=== PATIENT | female | born 1980 | race Caucasian/White ===

== ENCOUNTER 2016-11-17 06:47 | Observation (INO) | payer BC ==
[~2016-11-17] VITALS: Ht 170.2 cm; Wt 60.0 kg
[2016-11-17] VITALS (12 sets, daily range): BP systolic 115–138; BP diastolic 57–86; PULSE 79–100; TEMP 36.6–37.1; O2SAT 94–100; Ht 170.2 cm; Wt 60.0 kg
[~2016-11-17 06:47] MED LIST: BACL10TA PO; BUPRTAB51 PO; CLN200 PO; CLON1TAB3 PO; GDN/80 PO; LACTATED RINGER'S 1000ML 1,000 ML IV SCH; PANT40TA PO; TRMO2580 TOP
[2016-11-17] MEDS ORDERED: LACTATED RINGER'S 1000ML 1,000 ML IV ONE (07:27)
--- NOTE | 2016-11-17 07:27 | Endo History and Physical ---
History & Physical Date of Service: Nov 17, 2016. Chief Complaint: Abdominal pain Referring Physician: Dr. Atkinson History of Present Illness Patient with recurrent abdominal pain found to have CBD stones on a recent EUS. Patient presents for OP ERCP today. Past Surgical History Hx Cardiac Surgery: No Hx Abdominal Surgery: Yes ( X3, LAP AYDEN) Hx Post-Op Nausea and Vomiting: No Hx Cancer Surgery: No Hx Thoracic Surgery: No Hx Orthopedic: No Hx Urinary Tract Surgery: No Social History Smoking Status: Current Some Day Smoker Hx Substance Use: No Hx Alcohol Use: No Allergies Coded Allergies: No Known Allergies (Unverified , 11/11/16) Current Medications Reported Home Medications Medications Dose Route/Sig Max Daily Dose Days Date Category Sulindac 200 Mg Tab 1 Tab PO UD PRN 11/11/16 Reported Triamcinolone Acet 0.025% (Triamcinolone Acetonide (Topic) 0.025 % Oin 1 Appln TOP BID PRN 11/11/16 Reported Protonix (Pantoprazole) 40 Mg Tab 40 Mg PO QAM 11/11/16 Reported Lioresal (Baclofen) 10 Mg Tab 10 Mg PO PRN 08/11/16 Reported Geodon (Ziprasidone Hcl) 80 Mg Cap 80 Mg PO HS 08/11/16 Reported Klonopin (Clonazepam) 1 Mg Tab 1 Mg PO QAM 08/11/16 Reported Wellbutrin-Xl (Bupropion HCl) 300 Mg Tabcr 150 Mg PO QAM 08/11/16 Reported Vital Signs Weight (Kilograms): 60 Height (Feet): 5 Height (Inches): 7 Physical Exam General Appearance: no apparent distress Respiratory/Chest: Auscultation: breath sounds normal Cardiovascular: Heart Auscultation: RRR Abdomen: Inspection & Palpation: soft Assessment and Plan Patient with Gallstones seen on recent EUS associated with recurrent abdominal pain and nausea Will plan for ERCP today. Risks discussed to include bleeding , infection, perforation, pain, pancreatitis, and failed cannulation. Plan ERCP
[2016-11-17] MEDS ORDERED: INDOMETHACIN 50 MG SUPP PR SCH (07:30)
[2016-11-17] MEDS ORDERED: GLYCOPYRROLATE INJ 0.2 MG/ML VIAL ONE (07:31)
[2016-11-17] MEDS ORDERED: FENTANYL CITRATE INJ 50 MCG/1 ML 2 ML VIAL ONE (07:31)
[2016-11-17] MEDS ORDERED: NEOSTIGMINE METHYLSULFATE 5 MG/5 ML SYR ONE (07:31)
[2016-11-17] MEDS ORDERED: MIDAZOLAM HCL 1 MG/ML 2ML VIAL ONE (07:31)
[2016-11-17] MEDS ORDERED: ROCURONIUM BROMIDE 10 MG/ML 5 ML VIAL ONE (07:31)
[2016-11-17] MEDS ORDERED: DEXAMETHASONE SOD INJ 4 MG/ML VIAL ONE (07:31)
[2016-11-17] MEDS ORDERED: ONDANSETRON INJ 2 MG/ML 2 ML VIAL ONE (07:31)
[2016-11-17] MEDS ORDERED: PROPOFOL IV EMULSION 10 MG/ML 20 ML VIAL IV ONE (07:31)
[2016-11-17] MEDS ORDERED: LIDOCAINE HCL 2% 2 ML VIAL (20MG/ML) ONE (07:31)
[2016-11-17] MEDS ORDERED: ONDANSETRON INJ 2 MG/ML 2 ML VIAL IV PRN ×4 (10:30→14:00)
[2016-11-17] MEDS ORDERED: EpHEDrine SULFATE INJ 50 MG/ML AMP IV PRN (10:30)
[2016-11-17] MEDS ORDERED: LABETALOL HCL IV 5 MG/ML 20ML IV PRN (10:30)
[2016-11-17] MEDS ORDERED: MEPERIDINE HCL 25 MG/ML CARP IV PRN (10:30)
[2016-11-17] MEDS ORDERED: HYDROmorphone INJ 1 MG/ML SYR IV PRN (10:30)
[2016-11-17] MEDS ORDERED: ATROPINE SULFATE 0.1 MG/ML 5ML SYR IV PRN (10:30)
--- NOTE | 2016-11-17 10:38 | Discharge Instructions ---
Endoscopy Patient Instructions Date / Procedure(s) Performed Nov 17, 2016. ERCP Allergy Information Coded Allergies: No Known Allergies (Verified , 11/17/16) Discharge Date / Findings Nov 17, 2016. Common bile duct sludge papillary stenosis Medication Instructions Reported Home Medications Medications Dose Route/Sig Max Daily Dose Days Date Category Sulindac 200 Mg Tab 1 Tab PO UD PRN 11/11/16 Reported Triamcinolone Acet 0.025% (Triamcinolone Acetonide (Topic) 0.025 % Oin 1 Appln TOP BID PRN 11/11/16 Reported Protonix (Pantoprazole) 40 Mg Tab 40 Mg PO QAM 11/11/16 Reported Lioresal (Baclofen) 10 Mg Tab 10 Mg PO PRN 08/11/16 Reported Geodon (Ziprasidone Hcl) 80 Mg Cap 80 Mg PO HS 08/11/16 Reported Klonopin (Clonazepam) 1 Mg Tab 1 Mg PO QAM 08/11/16 Reported Wellbutrin-Xl (Bupropion HCl) 300 Mg Tabcr 150 Mg PO QAM 08/11/16 Reported Provider Instructions Activity Restrictions - No exercising or heavy lifting for 24 hours. - Do not drink alcohol the day of the procedure. - Do not drive a car or operate machinery until the day after the procedure. - Do not make any important decisions or sign important papers in 24 hours after the procedure. Following Day: - Return to full activity which may include returning to work/school. Diet Clear liquid diet today Regular diet on 11/18/16 Treatment For Common After Affects For mild abdominal pain, bloating, or excessive gas: - Rest - Eat lightly - Lie on right side Follow-Up Information Follow-up with Dr. Duarte in 4 to 6 months if symptoms persist Clear liquid diet today Regular diet on 11/18/16 Abdominal xray in 4 weeks (ensure passage of the pancreatic stent) Anesthesia Information What You Should Know You have had a procedure that required some medicine to reduce anxiety and discomfort. This treatment is called moderate sedation. After receiving the treatment, you may be sleepy, but you will be able to breathe on your own. The effects of the treatment may last for several hours. Follow these instructions along with Activity/Diet recommendations noted above: * Do NOT do anything where dizziness or clumsiness would be dangerous. * Rest quietly at home today, then you can be up and about tomorrow. * Have a responsible person stay with you the rest of today. * You may have had an I.V. today. If so, you may take the dressing off later today. Recommendations Call your doctor if: * Trouble breathing * Continuous vomiting for more than 24 hours * Temperature above 101 degrees * Severe abdominal pain or bloating * Pain not relieved by pain medicine ordered * There is increased drainage or redness from any incision * A large amount of rectal bleeding greater than 2-3 tablespoons. (If you had a polyp/s removed or have hemorrhoids, a small amount of blood - from the rectum is to be expected.) * You have any unanswered questions or concerns. IN THE EVENT OF A SERIOUS EMERGENCY, GO TO THE NEAREST EMERGENCY ROOM Your discharge instructions were prepared by provider Skinny Duarte. Patient Instructions Signature Page Moon Tovar Patient (or Guardian) Signature/Date: I have read and understand the instructions given to me by my caregivers. Caregiver/RN/Doctor Signature/Date: The above-named patient and/or guardian has received patient instructions on this date. + Original Patient Signature Page (only) stays with chart. Please make copy for patient.
--- NOTE | 2016-11-17 11:17 | GI REPORT ---
Procedure Date: 11/17/2016 10:01 AM Procedure: ERCP Indications: Abdominal pain of suspected biliary origin, Abnormal endoscopic ultrasound of the biliary system, For therapy of bile duct stone(s) Medicines: General Anesthesia, Indocin 100 mg IN Complications: No immediate complications. Estimated blood loss: Minimal. Estimated Blood Loss: Estimated blood loss was minimal. Procedure: Pre-Anesthesia Assessment: - Prior to the procedure, a History and Physical was performed, and patient medications, allergies and sensitivities were reviewed. The patient's tolerance of previous anesthesia was reviewed. - The risks and benefits of the procedure and the sedation options and risks were discussed with the patient. All questions were answered and informed consent was obtained. - Patient identification and proposed procedure were verified prior to the procedure by the physician, the nurse and the edge stitcher. The procedure was verified in the procedure room. - Pre-procedure physical examination revealed no contraindications to sedation. - ASA Grade Assessment: II - A patient with mild systemic disease. - After reviewing the risks and benefits, the patient was deemed in satisfactory condition to undergo the procedure. - The anesthesia plan was to use general anesthesia. - Immediately prior to administration of medications, the patient was re-assessed for adequacy to receive sedatives. - The heart rate, respiratory rate, oxygen saturations, blood pressure, adequacy of pulmonary ventilation, and response to care were monitored throughout the procedure. - The physical status of the patient was re-assessed after the procedure. After obtaining informed consent, the scope was passed under direct vision. Throughout the procedure, the patient's blood pressure, pulse, and oxygen saturations were monitored continuously. The ERCP was accomplished without difficulty. The patient tolerated the procedure well. The scope was introduced through the mouth, and advanced to the duodenum and used to inject contrast into the bile duct. Findings: A technician film of the abdomen was obtained. Surgical clips, consistent with previous cholecystectomy, were seen in the area of the right upper quadrant of the abdomen. The esophagus was successfully intubated under direct vision without detailed examination of the pharynx, larynx, and associated structures, and upper GI tract. The upper GI tract was grossly normal. The major papilla was congested. The ventral pancreatic duct was inadvertently cannulated with the short-nosed traction sphincterotome (Omni 35) and 0.035 in Acrobat guidewire without any complications. The wire was left in place to perform a double wire technique to aid in biliary cannulation. The bile duct was then deeply cannulated with the short-nosed traction sphincterotome (Omni 35) and 0.025 in Acrobat guidewire with 1 attempt. Contrast was injected. I personally interpreted the bile duct images. Contrast extended to the entire biliary tree. A cholecystectomy had been performed. The main bile duct was diffusely dilated. The largest diameter was 10 mm. The biliary orifice was stenotic. This appeared benign. Biliary sphincterotomy was made with a monofilament short-tip traction sphincterotome using ERBE electrocautery. There was no post-sphincterotomy bleeding. To discover objects, the biliary tree was swept with a 8.5 mm to15 mm balloon starting at the bifurcation several times. Sludge was swept from the duct. No debris or stones remained on occlusion cholangiogram. The biliary tree appeared to draining well at the end of the procedure. One 5 Fr by 7 cm pancreatic stent with a 3/4 external pigtail and no internal flaps was placed 7 cm into the common bile duct. Clear fluid flowed through the stent. The stent was in good position. The endoscope was withdrawn from the patient. The total fluoroscopy exposure time was 1 minute and 29 seconds. Impression: - The major papilla appeared congested. - The patient has had a cholecystectomy. - The entire main bile duct was dilated. - Biliary papillary stenosis, benign. - A sphincterotomy was performed. - The biliary tree was swept and sludge was found. - One pancreatic stent was placed into the pancreatic duct. Recommendation: - Avoid aspirin and nonsteroidal anti-inflammatory medicines for 1 week. - Clear liquid diet today. - Observe patient's clinical course following today's ERCP with therapeutic intervention. - Perform a flat plate abdominal x-ray in 4 weeks. - Return to my office in 6 months. Skinny Duarte D.O. Skinny Duarte, 11/17/2016 11:16:17 AM This report has been signed electronically. Note Initiated On: 11/17/2016 10:01 AM I attest to the content of the Intraoperative Record and orders documented therein, exceptions below
--- NOTE | 2016-11-17 11:19 | [facility] Post Operative Brief Note ---
Immediate Operative Summary Operative Date Nov 17, 2016. Pre-Operative Diagnosis Abdominal pain, common bile duct stones Post-Operative Diagnosis Abdominal pain, bile duct sludge, papillary stenosis Procedure(s) Performed Endoscopic Retrograde Cholangiopancreatogram with pancreatic duct stent placement Surgeon Dr. 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
[2016-11-17] MEDS: FENTANYL CITRATE INJ 50 MCG/1 ML 2 ML VIAL IV PRN ×4 (11:32→12:05)
[2016-11-17] MEDS ORDERED: NURSING VERBAL MED ORDER ONE ×2 (12:15→12:45)
--- NOTE | 2016-11-17 12:22 | Anesthesiology Progress Note ---
Anesthesia Post Op Note Date & Time Nov 17, 2016 at 12:22 Vital Signs Pain Intensity: 4 Vital Signs Past 12 Hours Date Time Temp Pulse Resp B/P Pulse Ox O2 Delivery O2 Flow Rate FiO2 11/17/16 12:10 36.3 82 16 150/92 98 Room Air 11/17/16 12:00 80 16 146/91 97 Room Air 11/17/16 11:50 89 16 147/87 100 Room Air 11/17/16 11:40 85 20 146/100 99 Mask 10 11/17/16 11:30 75 16 154/89 99 Mask 10 11/17/16 11:24 36.1 95 16 136/88 99 Mask 10 11/17/16 07:26 36.9 84 18 117/57 99 Room Air Notes Mental Status: alert / awake / arousable, participated in evaluation Pt Amnestic to Procedure: Yes Nausea / Vomiting: adequately controlled Pain: adequately controlled Airway Patency, RR, SpO2: stable & adequate BP & HR: stable & adequate Hydration State: stable & adequate Anesthetic Complications: no major complications apparent
--- NOTE | 2016-11-17 12:30 | DIAGNOSTIC IMAGING REPORT ---
FLUOROSCOPIC IMAGES FROM ERCP CLINICAL HISTORY: ERCP. COMPARISON STUDY: CT of the abdomen and pelvis August 11, 2016. FLUOROSCOPY TIME: 89 seconds. FINDINGS: 9 fluoroscopic images were obtained. These images demonstrate cannulation of the common bile duct as well as the main pancreatic duct. Location of the common bile duct is noted. There are cholecystectomy clips. Subsequent images demonstrate a sweep through the common bile duct with placement of a common bile duct stent. IMPRESSION:. Fluoroscopic images from ERCP with placement of common bile duct stent. Electronically signed by: Toño Latif M.D. 11/17/2016 12:28 PM Dictated Date/Time: 11/17/2016 12:26 PM
[2016-11-17] MEDS ORDERED: METOCLOPRAMIDE HCL INJ 5 MG/ML 2 ML VIAL ONE (12:35)
[2016-11-17] MEDS ORDERED: DiphenhydrAMINE HCL 50 MG/ML VIAL ONE (12:43)
[2016-11-17] MEDS ORDERED: HYDROmorphone INJ 0.5 MG/0.5 ML SYR IV STA (12:59)
[2016-11-17] MEDS ORDERED: HYDROmorphone INJ 0.5 MG/0.5 ML SYR ONE (13:04)
--- NOTE | 2016-11-17 14:20 | Progress Note ---
Progress Note Patient with nausea, abdominal pain and discomfort after EUS/ERCP today. Please watch overnight & cover for pancreatitis. IV Dilaudid 0.5 mg as needed for pain IV Zofran 4 mg as needed for nausea LR 200 ml/hr for fluid resuscitation Please call with any questions or concerns. (Shea Romero ., RAFIQ) ATTESTATION: I have performed a history and physical examination of this patient and reviewed the electronic record. Specifically, on physical examination there is diffuse mild abdominal tenderness. Given these findings, will admit for observation for possible pancreatitis. I have discussed the case with RAFIQ Diop. The above note reflects my findings, conclusions, and recommendations. Fernando Woodruff MD (Fernando Woodruff M.D.)
--- NOTE | 2016-11-17 14:28 | History and Physical ---
History & Physical Date & Time of Service: Nov 17, 2016 at 14:06 Chief Complaint: Choledocholithiasis, Epigastric Pain Primary Care Physician: Shanice Cheek M.D. History of Present Illness Source: patient, family, clinic records, hospital records Patient seen and examined. is a 36 year old female with PMHx of bipolar disorder and chronic abdominal pain is seen for overnight observation following ERCP by Dr. Duarte today. Patient had an ERCP this morning for chronic abdominal pain, and bile duct stone issues.Following the procedure patient has had worsening nausea, and RUQ abdominal pain. She states the pain is sharp and crampy. It is worse with movement and she rates it as a 7/10. She denies fevers , chills, URI symptoms, chest pain, SOB, vomiting, diarrhea, dysuria, calf pain and edema. I spoke with Dr. Woodruff (GI) who requested the patient be observed overnight for possible pancreatitis. Past Medical/Surgical History Medical Problems: (1) Anxiety Status: Chronic (2) Bipolar 1 disorder Status: Chronic (3) Depression Status: Chronic (4) GERD (gastroesophageal reflux disease) Status: Chronic Surgical Problems: (1) H/O tubal ligation Status: Resolved (2) History of cholecystectomy Status: Resolved Family History Blood clots FH: heart disease Social History Smoking Status: Former Smoker Alcohol Use: none Marital Status: Housing status: lives with family Occupational Status: unemployed Allergies Coded Allergies: No Known Allergies (Verified , 11/17/16) Home Medications Scheduled Baclofen (Lioresal), 10 MG PO PRN Bupropion (Wellbutrin-Xl), 300 MG PO QAM Clonazepam (Klonopin), 1 MG PO QAM Pantoprazole (Protonix), 40 MG PO QAM Ziprasidone Hcl (Geodon), 80 MG PO HS Scheduled PRN Sulindac (Sulindac), 1 TAB PO UD PRN for PRN Triamcinolone Acetonide (Topic (Triamcinolone Acet 0.025%), 1 APPLN TOP BID PRN for PRN Review of Systems See above for pertinent positives & negatives. A total of 10 systems reviewed and were otherwise negative. Physical Exam Vital Signs Date Time Temp Pulse Resp B/P Pulse Ox O2 Delivery O2 Flow Rate FiO2 11/17/16 13:35 90 20 137/77 96 11/17/16 13:05 90 20 137/86 96 11/17/16 12:50 36.7 85 20 138/77 100 11/17/16 12:30 79 16 150/89 96 Room Air 11/17/16 12:20 88 16 151/102 96 Room Air 11/17/16 12:10 36.3 82 16 150/92 98 Room Air 11/17/16 12:00 80 16 146/91 97 Room Air 11/17/16 11:50 89 16 147/87 100 Room Air 11/17/16 11:40 85 20 146/100 99 Mask 10 11/17/16 11:30 75 16 154/89 99 Mask 10 11/17/16 11:24 36.1 95 16 136/88 99 Mask 10 11/17/16 07:26 36.9 84 18 117/57 99 Room Air General Appearance: + pertinent finding (Pleasant WD/WN 36 year old female lying in bed in NAD with mother at bedside ) Head: normocephalic, atraumatic Eyes: PERRL, EOMI, sclerae normal ENT: hearing grossly normal, pharynx normal Neck: supple, no JVD Respiratory/Chest: chest non-tender, lungs clear, normal breath sounds, no respiratory distress, no accessory muscle use Cardiovascular: regular rate, rhythm, no edema, no gallop, no JVD, no murmur, normal peripheral pulses Abdomen/GI: normal bowel sounds, soft, + tenderness (RUQ +murphys ) Extremities/Musculoskelatal: no calf tenderness, normal capillary refill, no pedal edema Neurologic/Psych: alert, oriented x 3, + pertinent finding (no motor or sensory deficits noted on gross exam ) Skin: normal color, warm/dry, no rash Lymphatic: no adenopathy Diagnostics Laboratory Results Results Past 24 Hours Test 11/17/16 14:03 Range/Units Impression Assessment and Plan 36 year old female with chronic abdominal pain is seen for admission following ERCP and CBD stent with increasing abdominal pain ABDOMINAL PAIN S/P ERCP AND COMMON BILE DUCT STENT -Observation in med/surg -Spoke with GI they are concerned about possible pancreatitis -formal GI consult placed -IVFs - LR at 200ml/hr -pain control by GI -check CBC, CMP, Amylase, and lipase -NPO except sips/chips BIPOLAR DISORDER -continue Wellbutrin, Klonopin, Geodon GERD -continue PPI DVT PROPHYLAXIS: SCDs CODE STATUS: FULL CODE DISPO:observation pending further workup Patient seen in collaboration with Dr. Kohler agree with above H and P. 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 Post procedure patient complained of severe abdominal pain and nausea. Currently pain is controlled with pain meds.denies chest pain or sob. Afebrile. 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 Y/N: Yes Risk Level: Low
[2016-11-17] MEDS ORDERED: IV FLUIDS COMPLETED PRN (15:00)
[2016-11-17] MEDS: D5W AND LACTATED RINGERS 1,000 ML IV SCH ×3 (15:11→22:19)
[2016-11-17] MEDS: HYDROmorphone INJ 0.5 MG/0.5 ML SYR IV PRN ×4 (15:11→22:19)
[2016-11-17 15:48] LABS: HEMATOCRIT 35.8 % (37-47); MEAN CELL VOLUME 87.1 fL (80-100); MEAN CORPUSCULAR HEMOGLOBIN 30.4 pg (25-34); MEAN CORPUSCULAR HGB CONC 34.9 g/dl (32-36); MEAN PLATELET VOLUME 10.2 fL (7.4-10.4); PLATELET COUNT 221 K/uL (130-400); RED BLOOD COUNT 4.11 M/uL (4.2-5.4); WHITE BLOOD COUNT 9.56 K/uL (4.8-10.8)
--- NOTE | 2016-11-17 16:01 | Gastroenterology Progress Note ---
Progress Note Date of Service: Nov 17, 2016 Subjective Pt evaluation today including: conversation w/ patient, physical exam, chart review Ms. Tovar was seen and examined in recovery room this afternoon. She is s/p ERCP on 11/17/16 and is being evaluated at the request of Dr. Duarte. Post procedure - she was repoorting abdominal discomfort and nausea. She was re- evaluated within the hour at 12:30. At this time there was persisting abdominal discomfort, RUQ that was sharp and constant (6/10). Aggravated by movement and touch. There is an associated nausea. Given her increase risk for developing pancreatitis following ERCP (female, age, bile duct size) we advise to watch the patient overnight. She is denying any other GI symptoms at this time. No fever, chills, chest pain, SOB. ERCP 11/17/16: The major papilla appeared congested. The patient has had a cholecystectomy. The entire main bile duct was dilated. Biliary papillary stenosis, benign. A sphincterotomy was performed. The biliary tree was swept and sludge was found. One pancreatic stent was placed into the pancreatic duct. Avoid aspirin and nonsteroidal anti-inflammatory medicines for 1 week. Perform a flat plate abdominal x-ray in 4 weeks. Return to my office in 6 months. Review of Systems Constitutional: No chills, No fever Respiratory: No cough, No shortness of breath Cardiac: No chest pain, No edema Abdomen: + nausea, + pain, No GI bleeding, No constipation, No diarrhea, No vomiting Medications Current Inpatient Medications Medications (Trade) Dose Ordered Sig/Vianney Route Start Time Stop Time Status Last Admin Dose Admin Hydromorphone HCl 0.5 mg 0.5 mg Q2HWA PRN IV 11/17/16 13:00 12/01/16 12:59 11/17/16 15:11 0.5 MG Dextrose/Lactated Ringer's (D5W And Lactated Ringers) 1,000 ml @ 200 mls/hr Q5H IV 11/17/16 13:00 12/17/16 12:59 11/17/16 15:11 200 MLS/HR Ondansetron HCl (Zofran Inj) 4 mg Q4H PRN IV 11/17/16 13:00 12/17/16 12:59 Acetaminophen (Tylenol Tab) 650 mg Q4H PRN PO 11/17/16 14:00 12/17/16 13:59 Ondansetron HCl (Zofran Inj) 4 mg Q6H PRN IV 11/17/16 14:00 12/17/16 13:59 Bupropion HCl (Wellbutrin-Xl Tab) 300 mg QAM PO 11/18/16 09:00 12/18/16 08:59 UNV Clonazepam (Klonopin Tab) 1 mg QAM PO 11/18/16 09:00 12/18/16 08:59 UNV Pantoprazole Sodium (Protonix Tab) 40 mg QAM PO 11/18/16 09:00 12/18/16 08:59 UNV Ziprasidone (Geodon Cap) 80 mg HS PO 11/17/16 21:00 12/17/16 20:59 UNV Miscellaneous (Iv Fluids Completed) 1 ea PRN PRN N/A 11/17/16 15:00 11/17/17 14:59 Objective Vital Signs Date Time Temp Pulse Resp B/P Pulse Ox O2 Delivery O2 Flow Rate FiO2 11/17/16 13:35 90 20 137/77 96 11/17/16 13:05 90 20 137/86 96 11/17/16 12:50 36.7 85 20 138/77 100 11/17/16 12:30 79 16 150/89 96 Room Air 11/17/16 12:20 88 16 151/102 96 Room Air 11/17/16 12:10 36.3 82 16 150/92 98 Room Air 11/17/16 12:00 80 16 146/91 97 Room Air 11/17/16 11:50 89 16 147/87 100 Room Air 11/17/16 11:40 85 20 146/100 99 Mask 10 11/17/16 11:30 75 16 154/89 99 Mask 10 11/17/16 11:24 36.1 95 16 136/88 99 Mask 10 11/17/16 07:26 36.9 84 18 117/57 99 Room Air Physical Exam General Appearance: + mild distress (patient appears uncomfortable in bed, her mother is at bedside in the recovery room) Eyes: PERRL, EOMI ENT: hearing grossly normal Neck: supple, trachea midline Respiratory/Chest: lungs clear, normal breath sounds, no respiratory distress, no accessory muscle use Cardiovascular: regular rate, rhythm, no edema, no gallop, no JVD, no murmur Abdomen: normal bowel sounds, soft, no organomegaly, no pulsatile mass, + tenderness (tendneress with palpation of RUQ) Neurologic/Psych: alert, normal mood/affect, oriented x 3 Skin: normal color, no jaundice, warm/dry, no rash Laboratory Results Last 24 Hours Test 11/17/16 14:03 11/17/16 14:28 Assessment and Plan Ms. Tovar is a 36 year old female who is experiencing abdominal discomfort, RUQ that is sharp and constant with associated nausea following ERCP today. Differentials include anesthesia reaction or pancreatitis. CBC & lipase NPO - ice chips OK IV Dilaudid 0.5 mg as needed for pain IV Zofran 4 mg as needed for nausea LR 200 ml/hr for fluid resuscitation continue outpatient medications as appropriate Avoid aspirin and nonsteroidal anti-inflammatory medicines for 1 week. ATTESTATION: I have performed a history and physical examination of this patient and reviewed the electronic record. Specifically, on physical examination there is mild abdominal tenderness. I have discussed the case with RAFIQ Diop. The above note reflects my findings, conclusions, and recommendations. Fernando Woodruff MD
[2016-11-17 16:07] LABS: BUN/CREATININE RATIO 13.5 (10-20); CALCIUM 8.3 mg/dl (8.5-10.1); CREATININE 0.68 mg/dl (0.60-1.20); MAGNESIUM 1.8 mg/dl (1.8-2.4); POTASSIUM 3.7 mmol/L (3.5-5.1)
[2016-11-17 16:43] LABS: PREG INTERNAL NEGATIVE QC NEG CLEAR BACKGROUND; PREG INTERNAL POSITIVE QC POS CONTROL LINE
[2016-11-17] MEDS: PROMETHAZINE HCL INJ 25 MG in SODIUM CHLORIDE 0.9% 50ML 50 ML IV PRN (18:13)
[2016-11-17] MEDS: ACETAMINOPHEN 325 MG TAB PO PRN (21:23)
[2016-11-17] MEDS: ZIPRASIDONE 80 MG CAP PO SCH (21:24)
[2016-11-18] MEDS: HYDROmorphone INJ 0.5 MG/0.5 ML SYR IV PRN ×10 (01:06→23:25)
[2016-11-18] MEDS: ACETAMINOPHEN 325 MG TAB PO PRN (03:06)
[2016-11-18] MEDS: D5W AND LACTATED RINGERS 1,000 ML IV SCH ×4 (03:06→18:47)
[2016-11-18 03:41] VITALS: BP 122/76; PULSE 75; TEMP 36.6; O2SAT 97
[2016-11-18 06:44] LABS: BUN/CREATININE RATIO 8.1 (10-20); CALCIUM 8.2 mg/dl (8.5-10.1); CREATININE 0.72 mg/dl (0.60-1.20); MAGNESIUM 1.9 mg/dl (1.8-2.4); POTASSIUM 3.4 mmol/L (3.5-5.1)
[2016-11-18 07:30] VITALS: BP 121/77; PULSE 83; TEMP 36.6; O2SAT 97
[2016-11-18 07:51] LABS: HEMATOCRIT 36.5 % (37-47); MEAN CELL VOLUME 89.9 fL (80-100); MEAN PLATELET VOLUME 10.4 fL (7.4-10.4); PLATELET COUNT 178 K/uL (130-400); RED BLOOD COUNT 4.06 M/uL (4.2-5.4); WHITE BLOOD COUNT 8.07 K/uL (4.8-10.8)
[2016-11-18 07:52] LABS: MEAN CORPUSCULAR HGB CONC 33.4 g/dl (32-36)
[2016-11-18] MEDS: CLONAZEPAM 1 MG TAB PO SCH (08:27)
[2016-11-18] MEDS: BuPROPion XL 300 MG TABCR PO SCH (08:27)
[2016-11-18] MEDS: PANTOprazole SOD 40 MG TAB PO SCH (08:27)
--- NOTE | 2016-11-18 08:33 | Anesthesiology Progress Note ---
Anesthesia Post Op Note Date & Time Nov 18, 2016 at 08:33 Vital Signs Pain Intensity: 7.5 Vital Signs Past 12 Hours Date Time Temp Pulse Resp B/P Pulse Ox O2 Delivery O2 Flow Rate FiO2 11/18/16 07:30 36.6 83 16 121/77 97 Room Air 11/18/16 03:41 36.6 75 16 122/76 97 Room Air 11/17/16 23:30 Room Air 11/17/16 23:02 36.7 79 16 115/74 95 Room Air Notes Mental Status: alert / awake / arousable, participated in evaluation Pt Amnestic to Procedure: Yes Nausea / Vomiting: adequately controlled Pain: adequately controlled Airway Patency, RR, SpO2: stable & adequate BP & HR: stable & adequate Hydration State: stable & adequate Anesthetic Complications: no major complications apparent
[2016-11-18] MEDS ORDERED: POTASSIUM CHLORIDE 20 MEQ TABCR PO ONE (08:45)
--- NOTE | 2016-11-18 10:57 | Gastroenterology Progress Note ---
Progress Note Date of Service: Nov 18, 2016 Subjective Pt evaluation today including: conversation w/ patient, physical exam, chart review Ms Tovar was seen and evaluated today. Her WBC and lipase are unremarkable. She is still reporting severe RUQ pain, 7/10. She is requiring frequent use of Dilaudid. She is reporting bouts of nausea. No fever, chills, chest pain, SOB. No BM x 4 days Review of Systems Constitutional: No chills, No fever Respiratory: No cough, No shortness of breath Cardiac: No chest pain, No edema Abdomen: + constipation, + nausea, + pain, No GI bleeding, No diarrhea, No vomiting Medications Current Inpatient Medications Medications (Trade) Dose Ordered Sig/Vianney Route Start Time Stop Time Status Last Admin Dose Admin Hydromorphone HCl 0.5 mg 0.5 mg Q2HWA PRN IV 11/17/16 13:00 12/01/16 12:59 11/18/16 10:35 0.5 MG Dextrose/Lactated Ringer's (D5W And Lactated Ringers) 1,000 ml @ 200 mls/hr Q5H IV 11/17/16 13:00 12/17/16 12:59 11/18/16 08:22 200 MLS/HR Acetaminophen (Tylenol Tab) 650 mg Q4H PRN PO 11/17/16 14:00 12/17/16 13:59 11/18/16 03:06 650 MG Ondansetron HCl (Zofran Inj) 4 mg Q6H PRN IV 11/17/16 14:00 12/17/16 13:59 11/18/16 08:30 4 MG Bupropion HCl (Wellbutrin-Xl Tab) 300 mg QAM PO 11/18/16 09:00 12/18/16 08:59 11/18/16 08:27 300 MG Clonazepam (Klonopin Tab) 1 mg QAM PO 11/18/16 09:00 12/18/16 08:59 11/18/16 08:27 1 MG Pantoprazole Sodium (Protonix Tab) 40 mg QAM PO 11/18/16 09:00 12/18/16 08:59 11/18/16 08:27 40 MG Ziprasidone (Geodon Cap) 80 mg HS PO 11/17/16 21:00 12/17/16 20:59 11/17/16 21:24 80 MG Miscellaneous 1 ea 1 ea PRN PRN N/A 11/17/16 15:00 11/17/17 14:59 Promethazine HCl/ Sodium Chloride (Phenergan Inj/ Nss 50ml) 51 ml @ 204 mls/hr Q6H PRN IV 11/17/16 18:00 12/17/16 17:59 11/17/16 18:13 204 MLS/HR Objective Vital Signs Date Time Temp Pulse Resp B/P Pulse Ox O2 Delivery O2 Flow Rate FiO2 11/18/16 07:30 36.6 83 16 121/77 97 Room Air 11/18/16 03:41 36.6 75 16 122/76 97 Room Air 11/17/16 23:30 Room Air 11/17/16 23:02 36.7 79 16 115/74 95 Room Air 11/17/16 18:40 36.9 94 18 135/86 99 Room Air 11/17/16 17:43 37.1 79 16 130/73 96 Room Air 11/17/16 16:37 36.9 87 18 119/72 94 Room Air 11/17/16 16:11 36.6 87 16 126/79 94 Room Air 11/17/16 15:40 Room Air 11/17/16 15:40 Room Air 11/17/16 15:40 37.0 94 16 128/76 94 Room Air 11/17/16 15:25 37 100 18 122/74 95 Room Air 11/17/16 14:50 37 96 20 116/71 94 11/17/16 13:35 90 20 137/77 96 11/17/16 13:05 90 20 137/86 96 11/17/16 12:50 36.7 85 20 138/77 100 11/17/16 12:30 79 16 150/89 96 Room Air 11/17/16 12:20 88 16 151/102 96 Room Air 11/17/16 12:10 36.3 82 16 150/92 98 Room Air 11/17/16 12:00 80 16 146/91 97 Room Air 11/17/16 11:50 89 16 147/87 100 Room Air 11/17/16 11:40 85 20 146/100 99 Mask 10 11/17/16 11:30 75 16 154/89 99 Mask 10 11/17/16 11:24 36.1 95 16 136/88 99 Mask 10 Physical Exam General Appearance: + mild distress Eyes: PERRL, EOMI ENT: hearing grossly normal Neck: supple, trachea midline Respiratory/Chest: lungs clear, normal breath sounds, no respiratory distress, no accessory muscle use Cardiovascular: regular rate, rhythm, no edema, no gallop, no JVD, no murmur Abdomen: soft, no organomegaly, no pulsatile mass, + tenderness Neurologic/Psych: alert, normal mood/affect, oriented x 3 Skin: normal color, no jaundice, warm/dry, no rash Laboratory Results Last 24 Hours Test 11/17/16 15:33 11/18/16 05:52 11/18/16 07:43 White Blood Count 9.56 K/uL 8.07 K/uL Red Blood Count 4.11 M/uL 4.06 M/uL Hemoglobin 12.5 g/dL 12.2 g/dL Hematocrit 35.8 % 36.5 % Mean Corpuscular Volume 87.1 fL 89.9 fL Mean Corpuscular Hemoglobin 30.4 pg 30.0 pg Mean Corpuscular Hemoglobin Concent 34.9 g/dl 33.4 g/dl RDW Standard Deviation 46.8 fL 47.5 fL RDW Coefficient of Variation 14.7 % 14.4 % Platelet Count 221 K/uL 178 K/uL Mean Platelet Volume 10.2 fL 10.4 fL Sodium Level 142 mmol/L 145 mmol/L Potassium Level 3.7 mmol/L 3.4 mmol/L Chloride Level 107 mmol/L 109 mmol/L Carbon Dioxide Level 25 mmol/L 27 mmol/L Anion Gap 10.0 mmol/L 9.0 mmol/L Blood Urea Nitrogen 9 mg/dl 6 mg/dl Creatinine 0.68 mg/dl 0.72 mg/dl Est Creatinine Clear Calc Drug Dose 108.3 ml/min 102.3 ml/min Estimated GFR () 130.4 124.9 Estimated GFR (Non- 112.5 107.7 BUN/Creatinine Ratio 13.5 8.1 Random Glucose 130 mg/dl 108 mg/dl Calcium Level 8.3 mg/dl 8.2 mg/dl Magnesium Level 1.8 mg/dl 1.9 mg/dl Total Bilirubin 0.3 mg/dl Aspartate Amino Transf (AST/SGOT) 26 U/L Alanine Aminotransferase (ALT/SGPT) 44 U/L Alkaline Phosphatase 129 U/L Total Protein 6.1 gm/dl Albumin 3.1 gm/dl Globulin 3.0 gm/dl Albumin/Globulin Ratio 1.0 Amylase Level 54 U/L 67 U/L Lipase 262 U/L 339 U/L Human Chorionic Gonadotropin, Qual NEG Assessment and Plan Ms. Tovar is a 36 year old female who is experiencing abdominal discomfort, RUQ that is sharp and constant with associated nausea following ERCP today. Will evaluate with CT abd CT abd May use relistor is CT without obstruction NPO IV Dilaudid 0.5 mg as needed for pain IV Zofran 4 mg as needed for nausea LR 200 ml/hr for fluid resuscitation continue outpatient medications as appropriate Avoid aspirin and nonsteroidal anti-inflammatory medicines for 1 week. ATTESTATION: I have performed a history and physical examination of this patient and reviewed the electronic record. Specifically, on physical examination there is mild abdominal tenderness. There is no evidence of pancreatitis. I have discussed the case with RAFIQ Diop. The above note reflects my findings, conclusions, and recommendations. Fernando Woodruff MD
--- NOTE | 2016-11-18 14:16 | DIAGNOSTIC IMAGING REPORT ---
ABDOMEN AND PELVIS CT WITH IV AND ORAL CONTRAST CT DOSE: 301.86 mGy.cm HISTORY: Right upper quadrant abdominal pain. TECHNIQUE: Multiaxial CT images of the abdomen and pelvis were performed following the use of intravenous and oral contrast. COMPARISON STUDY: Abdomen and pelvis CT 08/11/2016. FINDINGS: Mild dependent changes seen at the lung bases. No pneumoperitoneum. No pneumatosis. No suspicious lytic or blastic osseous lesions. Mildly distended stomach. Only the distal portion of the main pancreatic duct stent remains within the pancreatic duct. The majority of the stent is located within the duodenum. Biliary ductal prominence remains stable. 4 mm hypodense lesion within the right hepatic lobe is also stable. This is too small to characterize but favors a cyst. No hepatic or splenic masses. The adrenal glands, kidneys, and pancreas are within normal limits. No peripancreatic inflammatory change. No retroperitoneal lymphadenopathy. A 2 cm right ovarian cyst. Normal uterus and left ovary. The bladder is unremarkable. Small amount of pelvic free fluid. Mild body wall edema. Moderate well-formed stool seen within the colon. No bowel wall thickening or obstruction. Normal appendix. IMPRESSION: 1. The distal portion of the main pancreatic duct stent resides within the pancreatic duct. The majority of the stent is located within the duodenum. 2. No CT evidence for acute pancreatitis. 3. Mild bile duct dilatation remains unchanged. 4. Cholecystectomy. 5. Mild body wall edema and a small amount of pelvic fluid. 6. No bowel wall thickening or obstruction. 7. Normal appendix. Electronically signed by: Delmar Peterson M.D. 11/18/2016 2:15 PM Dictated Date/Time: 11/18/2016 2:06 PM
[2016-11-18] MEDS: PROMETHAZINE HCL INJ 25 MG in SODIUM CHLORIDE 0.9% 50ML 50 ML IV PRN (14:49)
[2016-11-18 15:13] VITALS: BP 132/86; PULSE 87; TEMP 36.7; O2SAT 99
--- NOTE | 2016-11-18 15:25 | Progress Note ---
Progress Note Ct ABD 09/17/17: Only the distal portion of the main pancreatic duct stent remains within the pancreatic duct. The majority of the stent is located within the duodenum. Biliary ductal prominence remains stable. 4 mm hypodense lesion within the right hepatic lobe is also stable. This is too small to characterize but favors a cyst. No hepatic or splenic masses. The adrenal glands, kidneys, and pancreas are within normal limits. No peripancreatic inflammatory change. No retroperitoneal lymphadenopathy. A 2 cm right ovarian cyst. Normal uterus and left ovary. The bladder is unremarkable. Small amount of pelvic free fluid. Mild body wall edema. Moderate well-formed stool seen within the colon. No bowel wall thickening or obstruction. Normal appendix. No pathological cause of abdominal pain identified. No CT or lab evidence of pancreatitis. GI suggests advance diet, one dose of relistor, manage pain and discharge. Avoid aspirin and nonsteroidal anti-inflammatory medicines for 1 week. Observe patient's clinical course following today's ERCP with therapeutic intervention. Perform a flat plate abdominal x-ray in 4 weeks. Return to see Dr. Duarte in GI office in 6 months. Please call with any questions. She is advised to follow Dr. Duarte's discharge instructions as provided after her procedure.
[2016-11-18] MEDS ORDERED: METHYLNALTREXONE BROMIDE INJ 12 MG/0.6 ML SYR SQ SCH (16:00)
--- NOTE | 2016-11-18 18:30 | Progress Note ---
Medicine Progress Note Date & Time of Visit: Nov 18, 2016 at 18:18. Subjective Pt was seen and examined Sitting in bed with no acute distress Pt said that she continue to have the abdominal pain She said that she feels nauseated now because she is drinking the contrast for the CT scan she said that she feels hungry, but she is afraid to eat due to the pain she denies any chest pain, palpitation, dizziness and SOB Objective Last 8 Hrs Date Time Temp Pulse Resp B/P Pulse Ox O2 Delivery O2 Flow Rate FiO2 11/18/16 15:13 36.7 87 16 132/86 99 Room Air Physical Exam: General- no acute distress Head- atraumatic Eyes- PERRL, EOMI ENT- oropharynx clear Neck- supple, no JVD Lungs- clear to auscultation and percussion Heart- regular rhythm; no murmur, Abdomen- normal bowel sounds, +tenderness Extremities- no calf tenderness Neuro- alert, oriented x 3; PERRL, EOMI Skin- warm & dry Laboratory Results: Last 24 Hours Test 11/18/16 05:52 11/18/16 07:43 Sodium Level 145 mmol/L Potassium Level 3.4 mmol/L Chloride Level 109 mmol/L Carbon Dioxide Level 27 mmol/L Anion Gap 9.0 mmol/L Blood Urea Nitrogen 6 mg/dl Creatinine 0.72 mg/dl Est Creatinine Clear Calc Drug Dose 102.3 ml/min Estimated GFR () 124.9 Estimated GFR (Non- 107.7 BUN/Creatinine Ratio 8.1 Random Glucose 108 mg/dl Calcium Level 8.2 mg/dl Magnesium Level 1.9 mg/dl Amylase Level 67 U/L Lipase 339 U/L White Blood Count 8.07 K/uL Red Blood Count 4.06 M/uL Hemoglobin 12.2 g/dL Hematocrit 36.5 % Mean Corpuscular Volume 89.9 fL Mean Corpuscular Hemoglobin 30.0 pg Mean Corpuscular Hemoglobin Concent 33.4 g/dl RDW Standard Deviation 47.5 fL RDW Coefficient of Variation 14.4 % Platelet Count 178 K/uL Mean Platelet Volume 10.4 fL Assessment & Plan ABDOMINAL PAIN S/P ERCP AND COMMON BILE DUCT STENT Continue to have pain Continue pain management Lipase, amylase wnl Decrease NS at 80ml CT scan done today showed no finding for pancreatitis On clear liquid diet, will advanced if tolerated will keep her for tonight since she continue to have nausea and abdominal pain GI on board CONSTIPATION Last BM was about 4 days ago Relistor was given today continue monitor BIPOLAR DISORDER -continue Wellbutrin, Klonopin, Geodon GERD -continue PPI DVT PROPHYLAXIS: SCDs CODE STATUS: FULL CODE Current Inpatient Medications: Current Inpatient Medications Medications (Trade) Dose Ordered Sig/Vianney Route Start Time Stop Time Status Last Admin Dose Admin Hydromorphone HCl 0.5 mg 0.5 mg Q2HWA PRN IV 11/17/16 13:00 12/01/16 12:59 11/18/16 16:24 0.5 MG Dextrose/Lactated Ringer's (D5W And Lactated Ringers) 1,000 ml @ 200 mls/hr Q5H IV 11/17/16 13:00 12/17/16 12:59 11/18/16 13:19 200 MLS/HR Acetaminophen (Tylenol Tab) 650 mg Q4H PRN PO 11/17/16 14:00 12/17/16 13:59 11/18/16 03:06 650 MG Ondansetron HCl (Zofran Inj) 4 mg Q6H PRN IV 11/17/16 14:00 12/17/16 13:59 11/18/16 08:30 4 MG Bupropion HCl (Wellbutrin-Xl Tab) 300 mg QAM PO 11/18/16 09:00 12/18/16 08:59 11/18/16 08:27 300 MG Clonazepam (Klonopin Tab) 1 mg QAM PO 11/18/16 09:00 12/18/16 08:59 11/18/16 08:27 1 MG Pantoprazole Sodium (Protonix Tab) 40 mg QAM PO 11/18/16 09:00 12/18/16 08:59 11/18/16 08:27 40 MG Ziprasidone (Geodon Cap) 80 mg HS PO 11/17/16 21:00 12/17/16 20:59 11/17/16 21:24 80 MG Miscellaneous 1 ea 1 ea PRN PRN N/A 11/17/16 15:00 11/17/17 14:59 Promethazine HCl/ Sodium Chloride (Phenergan Inj/ Nss 50ml) 51 ml @ 204 mls/hr Q6H PRN IV 11/17/16 18:00 12/17/16 17:59 11/18/16 14:49 204 MLS/HR Methylnaltrexone [place] (Relistor Inj) 12 mg Q2D@1600 SQ 11/18/16 16:00 12/18/16 15:59 11/18/16 17:18 12 MG
[2016-11-18] MEDS: ZIPRASIDONE 80 MG CAP PO SCH (21:18)
[2016-11-19 00:04] VITALS: BP 120/75; PULSE 88; TEMP 37.1; O2SAT 96
[2016-11-19] MEDS: HYDROmorphone INJ 0.5 MG/0.5 ML SYR IV PRN ×6 (02:08→17:01)
[2016-11-19 07:00] VITALS: BP 123/78; PULSE 92; TEMP 36.5; O2SAT 97
[2016-11-19] MEDS: D5W AND LACTATED RINGERS 1,000 ML IV SCH (08:01)
[2016-11-19] MEDS: PROMETHAZINE HCL INJ 25 MG in SODIUM CHLORIDE 0.9% 50ML 50 ML IV PRN (08:01)
[2016-11-19 08:34] LABS: HEMATOCRIT 37.1 % (37-47); MEAN CORPUSCULAR HEMOGLOBIN 30.2 pg (25-34); MEAN PLATELET VOLUME 10.3 fL (7.4-10.4); PLATELET COUNT 178 K/uL (130-400); RED BLOOD COUNT 4.17 M/uL (4.2-5.4); WHITE BLOOD COUNT 8.04 K/uL (4.8-10.8)
[2016-11-19 09:03] LABS: BUN/CREATININE RATIO 5.4 (10-20); CALCIUM 8.6 mg/dl (8.5-10.1); CREATININE 0.79 mg/dl (0.60-1.20); POTASSIUM 3.4 mmol/L (3.5-5.1)
[2016-11-19 09:06] LABS: ALB/GLOB RATIO 1.1 (0.9-2)
[2016-11-19] MEDS: CLONAZEPAM 1 MG TAB PO SCH (09:57)
[2016-11-19] MEDS: PANTOprazole SOD 40 MG TAB PO SCH (09:57)
[2016-11-19] MEDS: BuPROPion XL 300 MG TABCR PO SCH (09:57)
[2016-11-19 15:15] VITALS: BP 110/77; PULSE 98; TEMP 36.9; O2SAT 98
[2016-11-19] MEDS ORDERED: DOCUSATE SODIUM/SENNA 50/8.6MG TAB PO ONE (19:55)
--- NOTE | 2016-11-19 19:57 | Progress Note ---
Medicine Progress Note Date & Time of Visit: Nov 19, 2016 at 19:50. Subjective Pt was seen and examined Sitting in bed with no distress Pt said that her abdominal pain improved she said the pain med with the tenderness she tolerated diet she is very anxious to go home today denies any chest pain, palpitation, dizziness and sob Objective Last 8 Hrs Date Time Temp Pulse Resp B/P Pulse Ox O2 Delivery O2 Flow Rate FiO2 11/19/16 15:15 36.9 98 16 110/77 98 Room Air Physical Exam: General- no acute distress Head- atraumatic Eyes- PERRL, EOMI ENT- oropharynx clear Neck- supple, no JVD Lungs- clear to auscultation and percussion Heart- regular rhythm; no murmur, Abdomen- normal bowel sounds, +tenderness Extremities- no calf tenderness Neuro- alert, oriented x 3; PERRL, EOMI Skin- warm & dry Laboratory Results: Last 24 Hours Test 11/19/16 08:25 White Blood Count 8.04 K/uL Red Blood Count 4.17 M/uL Hemoglobin 12.6 g/dL Hematocrit 37.1 % Mean Corpuscular Volume 89.0 fL Mean Corpuscular Hemoglobin 30.2 pg Mean Corpuscular Hemoglobin Concent 34.0 g/dl RDW Standard Deviation 48.0 fL RDW Coefficient of Variation 14.6 % Platelet Count 178 K/uL Mean Platelet Volume 10.3 fL Sodium Level 143 mmol/L Potassium Level 3.4 mmol/L Chloride Level 105 mmol/L Carbon Dioxide Level 29 mmol/L Anion Gap 9.0 mmol/L Blood Urea Nitrogen 4 mg/dl Creatinine 0.79 mg/dl Est Creatinine Clear Calc Drug Dose 93.2 ml/min Estimated GFR () 111.6 Estimated GFR (Non- 96.3 BUN/Creatinine Ratio 5.4 Random Glucose 85 mg/dl Calcium Level 8.6 mg/dl Total Bilirubin 0.3 mg/dl Aspartate Amino Transf (AST/SGOT) 16 U/L Alanine Aminotransferase (ALT/SGPT) 33 U/L Alkaline Phosphatase 118 U/L Total Protein 5.8 gm/dl Albumin 3.1 gm/dl Globulin 2.7 gm/dl Albumin/Globulin Ratio 1.1 Assessment & Plan ABDOMINAL PAIN S/P ERCP AND COMMON BILE DUCT STENT Pain improved Continue pain management Lipase, amylase wnl Decrease NS at 80ml CT scan done today showed no finding for pancreatitis tolerated diet Wants to go home tonight CONSTIPATION has not had a BM in the last few days Relistor was given 11/18 Senokot added BIPOLAR DISORDER -continue Wellbutrin, Klonopin, Geodon GERD -continue PPI DVT PROPHYLAXIS: SCDs CODE STATUS: FULL CODE Consultants: Gastro Current Inpatient Medications: Current Inpatient Medications Medications (Trade) Dose Ordered Sig/Vianney Route Start Time Stop Time Status Last Admin Dose Admin Hydromorphone HCl 0.5 mg 0.5 mg Q2HWA PRN IV 11/17/16 13:00 12/01/16 12:59 11/19/16 17:01 0.5 MG Dextrose/Lactated Ringer's (D5W And Lactated Ringers) 1,000 ml @ 80 mls/hr [id number] IV 11/17/16 13:00 12/18/16 12:59 11/19/16 08:01 80 MLS/HR Acetaminophen (Tylenol Tab) 650 mg Q4H PRN PO 11/17/16 14:00 12/17/16 13:59 11/18/16 03:06 650 MG Ondansetron HCl (Zofran Inj) 4 mg Q6H PRN IV 11/17/16 14:00 12/17/16 13:59 11/18/16 08:30 4 MG Bupropion HCl (Wellbutrin-Xl Tab) 300 mg QAM PO 11/18/16 09:00 12/18/16 08:59 11/19/16 09:57 300 MG Clonazepam (Klonopin Tab) 1 mg QAM PO 11/18/16 09:00 12/18/16 08:59 11/19/16 09:57 1 MG Pantoprazole Sodium (Protonix Tab) 40 mg QAM PO 11/18/16 09:00 12/18/16 08:59 11/19/16 09:57 40 MG Ziprasidone (Geodon Cap) 80 mg HS PO 11/17/16 21:00 12/17/16 20:59 11/18/16 21:18 80 MG Miscellaneous 1 ea 1 ea PRN PRN N/A 11/17/16 15:00 11/17/17 14:59 11/18/16 18:47 1 EA Promethazine HCl/ Sodium Chloride (Phenergan Inj/ Nss 50ml) 51 ml @ 204 mls/hr Q6H PRN IV 11/17/16 18:00 12/17/16 17:59 11/19/16 08:01 204 MLS/HR Methylnaltrexone [place] (Relistor Inj) 12 mg Q2D@1600 SQ 11/18/16 16:00 12/18/16 15:59 11/18/16 17:18 12 MG
[2016-11-19] MEDS ORDERED: SENN8.6T7 PO (20:00)
[2016-11-19] MEDS ORDERED: ONDA4TAB10 SL (20:04)
[2016-11-19] MEDS ORDERED: PERCOCET HOME PACK PO ONE ×2 (20:15→20:45)
[2016-11-19] MEDS ORDERED: OXYC-57 PO (20:16)
[2016-11-19 20:35] VITALS: BP 110/77; PULSE 98; TEMP 36.9; O2SAT 98
[2016-11-20] MEDS ORDERED: DOCUSATE SODIUM/SENNA 50/8.6MG TAB PO SCH (09:00)
--- NOTE | 2016-11-21 00:36 | Discharge Summary ---
Discharge Summary Admission Date: Nov 17, 2016 at 07:05 Discharge Date: Nov 19, 2016 Discharge Disposition: Home Principal Diagnosis: ABDOMINAL PAIN S/P ERCP AND COMMON BILE DUCT STENT Secondary Diagnoses/Problems: Constipation Bipolar disorder Gerd Procedures: ERCP Consultations: Gastro Medication Reconciliation New Medications: Ondasetron Odt (Zofran Odt) 4 Mg Tab 4 MG SL Q8 PRN for Nausea for 7 Days, #21 TAB Oxycodone/Acetaminophen 5MG/325MG (Percocet 5MG/325MG) Tab 1 TAB PO Q8H PRN for Pain for 5 Days, #15 TAB PAIN Sennosides-Docusate Sodium (Senokot S) 1 Tab Tab 1 TAB PO QAM PRN for Constipation for 15 Days, #15 TAB Continued Medications: Baclofen (Lioresal) 10 Mg Tab 10 MG PO PRN, TAB Bupropion (Wellbutrin-Xl) 300 Mg Tabcr 300 MG PO QAM, TAB Clonazepam (Klonopin) 1 Mg Tab 1 MG PO QAM, TAB Pantoprazole (Protonix) 40 Mg Tab 40 MG PO QAM Sulindac (Sulindac) 200 Mg Tab 1 TAB PO UD PRN for PRN Triamcinolone Acetonide (Topic (Triamcinolone Acet 0.025%) 0.025 % Oin 1 APPLN TOP BID PRN for PRN, #15 GM 1 Refill Ziprasidone Hcl (Geodon) 80 Mg Cap 80 MG PO HS, CAP Admission Information HPI (per Admitting provider): Patient seen and examined. is a 36 year old female with PMHx of bipolar disorder and chronic abdominal pain is seen for overnight observation following ERCP by Dr. Duarte today. Patient had an ERCP this morning for chronic abdominal pain, and bile duct stone issues.Following the procedure patient has had worsening nausea, and RUQ abdominal pain. She states the pain is sharp and crampy. It is worse with movement and she rates it as a 7/10. She denies fevers , chills, URI symptoms, chest pain, SOB, vomiting, diarrhea, dysuria, calf pain and edema. I spoke with Dr. Woodruff (GI) who requested the patient be observed overnight for possible pancreatitis. Physical Exam (per Admitting): General Appearance: + pertinent finding Head: normocephalic, atraumatic Eyes: PERRL, EOMI, sclerae normal ENT: hearing grossly normal, pharynx normal Neck: supple, no JVD Respiratory/Chest: chest non-tender, lungs clear, normal breath sounds, no respiratory distress, no accessory muscle use Cardiovascular: regular rate, rhythm, no edema, no gallop, no JVD, no murmur , normal peripheral pulses Abdomen/GI: normal bowel sounds, soft, + tenderness Extremities/Musculoskelatal: no calf tenderness, normal capillary refill, no pedal edema Neurologic/Psych: alert, oriented x 3, + pertinent finding Skin: normal color, warm/dry, no rash Lymphatic: no adenopathy Hospital Course ABDOMINAL PAIN S/P ERCP AND COMMON BILE DUCT STENT Pain improved Continue pain management Lipase, amylase wnl Decrease NS at 80ml CT scan done today showed no finding for pancreatitis tolerated diet Wants to go home tonight CONSTIPATION has not had a BM in the last few days Relistor was given 11/18 Senokot added BIPOLAR DISORDER -continue Wellbutrin, Klonopin, Geodon GERD -continue PPI DVT PROPHYLAXIS: SCDs CODE STATUS: FULL CODE Total time spent on discharge = 35 minutes This includes examination of the patient, discharge planning, medication reconciliation, and communication with other providers. Discharge Instructions Endoscopy Patient Instructions Date / Procedure(s) Performed Nov 17, 2016. ERCP Allergy Information Coded Allergies: No Known Allergies (Verified , 11/17/16) Discharge Date / Findings Nov 17, 2016. Common bile duct sludge papillary stenosis Medication Instructions Reported Home Medications Medications Dose Route/Sig Max Daily Dose Days Date Category Sulindac 200 Mg Tab 1 Tab PO UD PRN 11/11/16 Reported Triamcinolone Acet 0.025% (Triamcinolone Acetonide (Topic) 0.025 % Oin 1 Appln TOP BID PRN 11/11/16 Reported Protonix (Pantoprazole) 40 Mg Tab 40 Mg PO QAM 11/11/16 Reported Lioresal (Baclofen) 10 Mg Tab 10 Mg PO PRN 08/11/16 Reported Geodon (Ziprasidone Hcl) 80 Mg Cap 80 Mg PO HS 08/11/16 Reported Klonopin (Clonazepam) 1 Mg Tab 1 Mg PO QAM 08/11/16 Reported Wellbutrin-Xl (Bupropion HCl) 300 Mg Tabcr 150 Mg PO QAM 11/10/16 Reported Provider Instructions Activity Restrictions - No exercising or heavy lifting for 24 hours. - Do not drink alcohol the day of the procedure. - Do not drive a car or operate machinery until the day after the procedure. - Do not make any important decisions or sign important papers in 24 hours after the procedure. Following Day: - Return to full activity which may include returning to work/school. Diet Clear liquid diet today Regular diet on 11/18/16 Treatment For Common After Affects For mild abdominal pain, bloating, or excessive gas: - Rest - Eat lightly - Lie on right side Follow-Up Information Follow-up with Dr. Duarte in 4 to 6 months if symptoms persist Clear liquid diet today Regular diet on 11/18/16 Abdominal xray in 4 weeks (ensure passage of the pancreatic stent) Anesthesia Information What You Should Know You have had a procedure that required some medicine to reduce anxiety and discomfort. This treatment is called moderate sedation. After receiving the treatment, you may be sleepy, but you will be able to breathe on your own. The effects of the treatment may last for several hours. Follow these instructions along with Activity/Diet recommendations noted above: * Do NOT do anything where dizziness or clumsiness would be dangerous. * Rest quietly at home today, then you can be up and about tomorrow. * Have a responsible person stay with you the rest of today. * You may have had an I.V. today. If so, you may take the dressing off later today. Recommendations Call your doctor if: * Trouble breathing * Continuous vomiting for more than 24 hours * Temperature above 101 degrees * Severe abdominal pain or bloating * Pain not relieved by pain medicine ordered * There is increased drainage or redness from any incision * A large amount of rectal bleeding greater than 2-3 tablespoons. (If you had a polyp/s removed or have hemorrhoids, a small amount of blood - from the rectum is to be expected.) * You have any unanswered questions or concerns. IN THE EVENT OF A SERIOUS EMERGENCY, GO TO THE NEAREST EMERGENCY ROOM Your discharge instructions were prepared by provider Skinny Duarte. Patient Instructions Signature Page Moon Tovar Patient (or Guardian) Signature/Date: I have read and understand the instructions given to me by my caregivers. Caregiver/RN/Doctor Signature/Date: The above-named patient and/or guardian has received patient instructions on this date. + Original Patient Signature Page (only) stays with chart. Please make copy for patient. Addendum: Jamarcus Smith M.D. on 11/19/16 @ 20:07 Discharge Inst - Addendum Addendum Provider: Addendum Notes were documented by provider Jamarcus Smith. Will call you tomorrow to schedule an appointment with your primary care physician Additional Copies To Shanice Cheek M.D.
== END 2016-11-19 21:11 | disposition home or self-care (01) ==
LOC: ENRESERVTM → ENRESERVDT → C.ACU 06:47 → C.MSW 07:05 → UNDOADMOB 13:47 → C.MSW 13:47
PROVIDERS: ADMIT Internal Medicine; ATTEND Internal Medicine
DX: G89.18 Other acute postprocedural pain (principal); F31.9 Bipolar disorder, unspecified; K21.9 Gastro-esophageal reflux disease without esophagitis; Z87.891 Personal history of nicotine dependence; Z79.899 Other long term (current) drug therapy; K59.00 Constipation, unspecified

== ENCOUNTER 2017-03-24 14:07 | Emergency (ER) | payer BC ==
[~2017-03-24] VITALS: Ht 170.2 cm; Wt 64.9 kg
[~2017-03-24 14:07] MED LIST changes: -LACTATED RINGER'S 1000ML 1,000 ML IV SCH; +SENN8.6T7 PO
[2017-03-24 14:14] VITALS: TEMP 36.6; Ht 170.2 cm; Wt 64.9 kg
[2017-03-24 17:37] LABS: BASO % 0.6 %; BASO ABS # 0.03 K/uL (0-0.2); COMPLETE YES; EOS % 4.3 %; HEMATOCRIT 34.5 % (37-47); IG% 0.2 %; LYMPH % 29.4 %; LYMPH ABS # 1.38 K/uL (1.2-3.4); MEAN CELL VOLUME 83.3 fL (80-100); MEAN CORPUSCULAR HEMOGLOBIN 27.1 pg (25-34); MEAN CORPUSCULAR HGB CONC 32.5 g/dl (32-36); MEAN PLATELET VOLUME 10.4 fL (7.4-10.4); MONO % 7.9 %; NEUT % 57.6 %; PLATELET COUNT 270 K/uL (130-400); RED BLOOD COUNT 4.14 M/uL (4.2-5.4); WHITE BLOOD COUNT 4.69 K/uL (4.8-10.8)
[2017-03-24 18:12] LABS: ALT/SGPT 27 U/L (12-78); BLOOD UREA NITROGEN 10 mg/dl (7-18); BUN/CREATININE RATIO 9.9 (10-20); CALCIUM 8.6 mg/dl (8.5-10.1); CARBON DIOXIDE 28 mmol/L (21-32); CHLORIDE 109 mmol/L (98-107); GLUCOSE 95 mg/dl (70-99); POTASSIUM 3.9 mmol/L (3.5-5.1); SODIUM 143 mmol/L (136-145)
[2017-03-24 18:16] LABS: URINE APPEARANCE CLEAR (CLEAR); URINE BILIRUBIN NEG (NEG); URINE COLOR YELLOW; URINE EPITHELIAL CELL AUTO >30 /lpf (0-5); URINE NITRITE NEG (NEG); URINE PH 8.5 (4.5-7.5); URINE SPECIFIC GRAVITY 1.016 (1.000-1.030); UROBILINOGEN NEG (NEG); ZZUR CULT IF INDIC CLEAN CATCH NO
[2017-03-24 18:18] LABS: MANUAL MICROSCOPIC REQUIRED? NO; REVIEW REQ? NO
[2017-03-24 18:23] LABS: ALKALINE PHOSPHATASE 86 U/L (45-117); AST/SGOT 23 U/L (15-37)
--- NOTE | 2017-03-24 18:38 | EMERGENCY ROOM VISIT NOTE ---
History Report prepared by Gerson: Robby Ortega Under the Supervision of: Dr. Earnest Ovalle D.O. First contact with patient: 17:06 Chief Complaint: DENTAL PAIN Stated Complaint: ABCESS TOOTH WITH POSSIBLE TOXICITY Nursing Triage Summary: R upper tooth abscess on going for a month, has been on abx and isnt getting better, pt c/o foot, stomach and facial swelling and pain, sent to er by dentist History of Present Illness The patient is a 37 year old female who presents to the Emergency Room with complaints of a worsening dental pain starting a month ago. She rates her pain as a 7/10 in severity. The patient reports that she went to the dentist a month ago and found out she had an abscess on her upper right tooth. The patient reports that she set up an appointment with her dentist during her visit to remove the abscess and decaying tooth on March 28, 2017. She states that she was sent home from the dentist that day and was prescribed three different kinds of antibiotics, which she states works for a little but the symptoms come back. The patient states that she has been experiencing mouth pain and gum pain. She also reports that she has been experiencing swelling of her face under her eyes, feet, and abdomen. The patient states that she has also been experiencing intermittent fevers whenever she feels the antibiotics aren't working. She states she called the dentist today who told her her symptoms might be due to a toxicity of the decaying tooth and told her to report to the ED. She states that she just finished her Clindamycin today and currently does not have a fever. The patient states she has a history of depression and anxiety. She admits that she smokes about 2-5 cigarettes a day. The patient reports that her last menstrual period was February 27 and denies any possibility of a . She denies any new medications. Source of History: patient Onset: a month ago Position: teeth Symptom Intensity: 7/10 Timing: worsening Modifying Factors (Relieving): other (Clindamycin) Associated Symptoms: + fevers Review of Systems See HPI for pertinent positives & negatives. A total of 10 systems reviewed and were otherwise negative. Past Medical & Surgical Medical Problems: (1) Abdominal pain (2) Anxiety (3) Bipolar 1 disorder (4) Depression (5) GERD (gastroesophageal reflux disease) Surgical Problems: (1) H/O tubal ligation (2) History of cholecystectomy Family History Blood clots FH: heart disease Social History Smoking Status: Never Smoker Marital Status: Occupation Status: unemployed Current/Historical Medications Scheduled Baclofen (Lioresal), 10 MG PO PRN Bupropion (Wellbutrin-Xl), 300 MG PO QAM Clonazepam (Klonopin), 1 MG PO TID Pantoprazole (Protonix), 40 MG PO QAM Ziprasidone Hcl (Geodon), 80 MG PO HS Scheduled PRN Sennosides-Docusate Sodium (Senokot S), 1 TAB PO QAM PRN for Constipation Sulindac (Sulindac), 1 TAB PO UD PRN for PRN Triamcinolone Acetonide (Topic (Triamcinolone Acet 0.025%), 1 APPLN TOP BID PRN for PRN Allergies Coded Allergies: No Known Allergies (Verified , 11/17/16) Physical Exam Vital Signs Date Time Temp Pulse Resp B/P (MAP) Pulse Ox O2 Delivery O2 Flow Rate FiO2 03/24/17 17:48 78 03/24/17 17:46 79 20 114/71 99 Room Air 03/24/17 16:57 88 20 133/70 100 Room Air 03/24/17 14:14 36.6 91 18 120/69 98 Room Air Physical Exam CONSTITUTIONAL/VITAL SIGNS: Reviewed / noted above. GENERAL: Non-toxic in appearance. INTEGUMENTARY: Warm, dry, and [place]. HEAD: Normocephalic. EYES: without scleral icterus or trauma. ENT/OROPHARYNX: clear and moist. No appreciable edema. No dental abscess or gum edema noted. Dental decay on various teeth. LYMPHADENOPATHY/NECK: Is supple without lymphadenopathy or meningismus. RESPIRATORY: Lungs clear and equal. CARDIOVASCULAR: Regular rate and rhythm. GI/ABDOMEN: Soft and nontender. No organomegaly or pulsatile mass. No rebound or guarding. Normal bowel sounds. EXTREMITIES: Warm and well perfused. No appreciable extremity edema. BACK: No CVA tenderness. NEUROLOGICAL: Intact without focal deficits. PSYCHIATRIC: normal affect. MUSCULOSKELETAL: Normally developed with good muscle tone. Medical Decision & Procedures Laboratory Results 03/24/17 17:21 Red Blood Count 4.14, Mean Corpuscular Volume 83.3, Mean Corpuscular Hemoglobin 27.1, Mean Corpuscular Hemoglobin Concent 32.5, Mean Platelet Volume 10.4, Neutrophils (%) (Auto) 57.6, Lymphocytes (%) (Auto) 29.4, Monocytes (%) (Auto) 7.9, Eosinophils (%) (Auto) 4.3, Basophils (%) (Auto) 0.6, Neutrophils # (Auto) 2.70, Lymphocytes # (Auto) 1.38, Monocytes # (Auto) 0.37, Eosinophils # (Auto) 0.20, Basophils # (Auto) 0.03 03/24/17 17:21 Test 03/24/17 17:21 03/24/17 17:50 White Blood Count 4.69 K/uL (4.8-10.8) Red Blood Count 4.14 M/uL (4.2-5.4) Hemoglobin 11.2 g/dL (12.0-16.0) Hematocrit 34.5 % (37-47) Mean Corpuscular Volume 83.3 fL (80-100) Mean Corpuscular Hemoglobin 27.1 pg (25-34) Mean Corpuscular Hemoglobin Concent 32.5 g/dl (32-36) Platelet Count 270 K/uL (130-400) Mean Platelet Volume 10.4 fL (7.4-10.4) Neutrophils (%) (Auto) 57.6 % Lymphocytes (%) (Auto) 29.4 % Monocytes (%) (Auto) 7.9 % Eosinophils (%) (Auto) 4.3 % Basophils (%) (Auto) 0.6 % Neutrophils # (Auto) 2.70 K/uL (1.4-6.5) Lymphocytes # (Auto) 1.38 K/uL (1.2-3.4) Monocytes # (Auto) 0.37 K/uL (0.11-0.59) Eosinophils # (Auto) 0.20 K/uL (0-0.5) Basophils # (Auto) 0.03 K/uL (0-0.2) RDW Standard Deviation 46.7 fL (36.4-46.3) RDW Coefficient of Variation 15.2 % (11.5-14.5) Immature Granulocyte % (Auto) 0.2 % Immature Granulocyte # (Auto) 0.01 K/uL (0.00-0.02) Anion Gap 6.0 mmol/L (3-11) Est Creatinine Clear Calc Drug Dose 74.9 ml/min Estimated GFR () 83.4 Estimated GFR (Non- 71.9 BUN/Creatinine Ratio 9.9 (10-20) Calcium Level 8.6 mg/dl (8.5-10.1) Total Bilirubin < 0.1 mg/dl (0.2-1) Direct Bilirubin < 0.1 mg/dl (0-0.2) Aspartate Amino Transf (AST/SGOT) 23 U/L (15-37) Alanine Aminotransferase (ALT/SGPT) 27 U/L (12-78) Alkaline Phosphatase 86 U/L (45-117) Total Protein 6.3 gm/dl (6.4-8.2) Albumin 3.6 gm/dl (3.4-5.0) Thyroid Stimulating Hormone (TSH) 1.440 uIu/ml (0.300-4.500) Urine Color YELLOW Urine Appearance CLEAR (CLEAR) Urine pH 8.5 (4.5-7.5) Urine Specific [place] 1.016 (1.000-1.030) Urine Protein NEG (NEG) Urine Glucose (UA) NEG (NEG) Urine Ketones NEG (NEG) Urine Occult Blood NEG (NEG) Urine Nitrite NEG (NEG) Urine Bilirubin NEG (NEG) Urine Urobilinogen NEG (NEG) Urine Leukocyte Esterase NEG (NEG) Urine WBC (Auto) 0 /hpf (0-5) Urine RBC (Auto) 0-4 /hpf (0-4) Urine Hyaline Casts (Auto) 0 /lpf (0-5) Urine Epithelial Cells (Auto) >30 /lpf (0-5) Urine Bacteria (Auto) NEG (NEG) Urine Test NEG (NEG) Laboratory results as stated above per my review. ED Course 1710: Previous medical records were reviewed. The patient was evaluated in room A04B. A complete history and physical examination was performed. 1840: On reevaluation, the patient is doing well. I discussed the results and findings with the patient. She verbalized agreement of the treatment plan. She was discharged home. Medical Decision Differential includes acute coronary syndrome, myocardial infarction, CVA, TIA, anemia, infection, pneumonia, UTI, pyelonephritis, poor nutrition, dehydration, electrolyte disturbance,hypoglycemia. Medication Reconciliation: I attest that I have personally reviewed the patient' s current medication list. Blood pressure Screening: Patient was found to have normal blood pressure on screening and does not require follow-up. This is a 37-year-old female who presents to the ED with a chief complaint of swelling and discomfort in her gums as well as swelling in her bilateral maxillary region, bilateral feet and stomach. The patient finished a course of clindamycin today. She called her dentist and was referred here. The patient reports being a smoker. She states that she has not had a fever since on the antibiotics. Last menstrual. Was 3 weeks ago. Her vital signs are normal. Her physical exam was essentially normal. Although she complains of bilateral maxillary edema, abdominal swelling and lower extremity edema, none was appreciated on exam. Her dentition appears to have some chronic decay but there is no obvious acute infection or abscess. There is no unilateral facial swelling. No lymphadenopathy. Her exam is essentially normal. Her vital signs are normal. Blood work including a CBC, complete metabolic panel was unremarkable. Urine did not show infection and she has a negative test. The patient was told the results. She is felt to be stable for discharge and outpatient follow-up. She does have an appointment with her dentist for dental removal. Impression Primary Impression: Swelling Scribe Attestation The scribe's documentation has been prepared under my direction and personally reviewed by me in its entirety. I confirm that the note above accurately reflects all work, treatment, procedures, and medical decision making performed by me. Departure Information Dispostion Home / Self-Care Referrals Camille Lock C.R.N.P. (PCP) Patient Instructions My [facility] Additional Instructions Your blood tests did not show any abnormalities. Follow-up with your dentist. See your family doctor for additional concerns.
[2017-03-24 18:48] VITALS: BP 118/76; PULSE 73; O2SAT 99
[2017-08-29] MEDS ORDERED: PROM12.57 PO (13:06)
[2017-08-29] MEDS ORDERED: LINA1CAP2 PO (13:06)
[2017-08-29] MEDS ORDERED: OXYC7.5T65 PO (13:06)
[2017-08-29] MEDS ORDERED: LRS20 PO (13:06)
== END 2017-03-24 18:48 | disposition home or self-care (01) ==
LOC: C.EDB 14:08 → C.EDA 18:48
DX: R22.0 Localized swelling, mass and lump, head (principal); M79.89 Other specified soft tissue disorders; K21.9 Gastro-esophageal reflux disease without esophagitis; F32.9 Major depressive disorder, single episode, unspecified; F41.9 Anxiety disorder, unspecified; F17.210 Nicotine dependence, cigarettes, uncomplicated; Z90.49 Acquired absence of other specified parts of digestive tract; Z98.51 Tubal ligation status; Z82.49 Family history of ischemic heart disease and other diseases of the circulatory system; Z79.899 Other long term (current) drug therapy

== ENCOUNTER → 2017-04-19 | Outpatient (CLI) | payer BC ==
--- NOTE | 2017-04-19 12:56 | DIAGNOSTIC IMAGING REPORT ---
KUB CLINICAL HISTORY: K59.09 Chronic [id number] Abdominal [id number] COMPARISON STUDY: No previous studies for comparison. FINDINGS: There are no transition zones indicate bowel obstruction. There is scattered stool within the colon. There is a mildly dilated left upper quadrant small bowel loop. There are surgical clips in the right upper quadrant consistent with a prior cholecystectomy IMPRESSION: Nonspecific bowel gas pattern with a mildly dilated left upper quadrant small bowel loop. This may represent a focal ileus. There is no conventional radiographic evidence of a high-grade bowel obstruction. There is mild fecal retention. Electronically signed by: David Sultana M.D. 04/19/2017 12:55 PM Dictated Date/Time: 04/19/2017 12:50 PM
== END | disposition home or self-care (01) ==
LOC: C.RAD1850 11:35
PROVIDERS: ATTEND Registered Nurse
DX: K59.09 Other constipation (principal); R14.0 Abdominal distension (gaseous)

== ENCOUNTER → 2017-05-17 | Outpatient (CLI) | payer BC ==
[2017-05-20 01:57] LABS: CHLAMYDIA TRACH RNA*** NOT DETECTED (NOT DETECTED); GC (NEIS GONORRHOEAE)RNA** NOT DETECTED (NOT DETECTED)
== END | disposition home or self-care (01) ==
LOC: C.LABSPEC 17:40
PROVIDERS: ATTEND Nurse Practitioner Adult Health
DX: L29.8 Other pruritus (principal); N94.10 Unspecified dyspareunia

== ENCOUNTER → 2017-05-24 | Outpatient (CLI) | payer BC ==
[2017-05-24 11:58] LABS: BASO % 0.6 %; BASO ABS # 0.03 K/uL (0-0.2); COMPLETE YES; EOS % 3.2 %; HEMATOCRIT 36.6 % (37-47); IG% 0.2 %; LYMPH % 20.7 %; LYMPH ABS # 1.11 K/uL (1.2-3.4); MEAN CELL VOLUME 78.5 fL (80-100); MEAN CORPUSCULAR HGB CONC 30.6 g/dl (32-36); MEAN PLATELET VOLUME 10.3 fL (7.4-10.4); MONO % 13.2 %; NEUT % 62.1 %; PLATELET COUNT 385 K/uL (130-400); RED BLOOD COUNT 4.66 M/uL (4.2-5.4); WHITE BLOOD COUNT 5.37 K/uL (4.8-10.8)
[2017-05-24 17:46] LABS: BLOOD UREA NITROGEN 9 mg/dl (7-18); BUN/CREATININE RATIO 9.8 (10-20); CALCIUM 8.5 mg/dl (8.5-10.1); CARBON DIOXIDE 31 mmol/L (21-32); CHLORIDE 106 mmol/L (98-107); CREATININE 0.95 mg/dl (0.60-1.20); GLUCOSE 92 mg/dl (70-99); SODIUM 142 mmol/L (136-145)
== END | disposition home or self-care (01) ==
LOC: C.LABPBG 10:38
PROVIDERS: ATTEND Family Medicine
DX: R60.9 Edema, unspecified (principal)

== ENCOUNTER → 2017-06-15 | Outpatient (CLI) | payer BC | END | disposition home or self-care (01) | LOC: C.LABSPEC 13:33 | PROVIDERS: ATTEND Physician Assistant | DX: L29.8 Other pruritus (principal) ==

== ENCOUNTER → 2017-07-24 | Outpatient (CLI) | payer BC ==
[2017-07-24 12:29] LABS: BASO % 0.6 %; BASO ABS # 0.03 K/uL (0-0.2); COMPLETE YES; HEMATOCRIT 38.7 % (37-47); IG% 0.2 %; LYMPH ABS # 1.27 K/uL (1.2-3.4); MEAN CELL VOLUME 75.7 fL (80-100); MEAN CORPUSCULAR HEMOGLOBIN 24.3 pg (25-34); MEAN PLATELET VOLUME 10.4 fL (7.4-10.4); MONO % 7.8 %; NEUT % 63.4 %; PLATELET COUNT 251 K/uL (130-400); RED BLOOD COUNT 5.11 M/uL (4.2-5.4); WHITE BLOOD COUNT 4.89 K/uL (4.8-10.8)
[2017-07-24 12:48] LABS: AMYLASE 70 U/L (25-115)
[2017-07-24 13:05] LABS: ALT/SGPT 19 U/L (12-78); BLOOD UREA NITROGEN 8 mg/dl (7-18); BUN/CREATININE RATIO 8.6 (10-20); CARBON DIOXIDE 25 mmol/L (21-32); CHLORIDE 108 mmol/L (98-107); CREATININE 0.93 mg/dl (0.60-1.20); GLUCOSE 97 mg/dl (70-99); POTASSIUM 3.8 mmol/L (3.5-5.1); SODIUM 140 mmol/L (136-145)
[2017-07-24 13:08] LABS: ALB/GLOB RATIO 1.4 (0.9-2); ALKALINE PHOSPHATASE 71 U/L (45-117); AST/SGOT 14 U/L (15-37)
[2017-07-24 13:09] LABS: CHOLESTEROL/HDL RATIO 2.6; THYROID STIMULATING HORMONE 2.53 uIu/ml (0.300-4.500)
== END | disposition home or self-care (01) ==
LOC: C.LABPBG 10:59
PROVIDERS: ATTEND Registered Nurse
DX: Z79.899 Other long term (current) drug therapy (principal); R11.10 Vomiting, unspecified; K80.64 Calculus of gallbladder and bile duct with chronic cholecystitis without obstruction; E87.6 Hypokalemia

== ENCOUNTER → 2017-09-04 | Outpatient (CLI) | payer BC ==
[~2017-09-04] MED LIST changes: -BACL10TA PO; -CLN200 PO; +LINA1CAP2 PO; +LRS20 PO; +OXYC7.5T65 PO; +PROM12.57 PO
[2017-09-04 12:25] LABS: BASO % 0.5 %; BASO ABS # 0.02 K/uL (0-0.2); COMPLETE YES; HEMATOCRIT 37.1 % (37-47); IG% 0.3 %; LYMPH % 40.7 %; LYMPH ABS # 1.54 K/uL (1.2-3.4); MEAN CELL VOLUME 80.1 fL (80-100); MEAN CORPUSCULAR HEMOGLOBIN 25.1 pg (25-34); MEAN CORPUSCULAR HGB CONC 31.3 g/dl (32-36); MONO % 6.3 %; NEUT % 47.2 %; PLATELET COUNT 265 K/uL (130-400); RED BLOOD COUNT 4.63 M/uL (4.2-5.4); WHITE BLOOD COUNT 3.78 K/uL (4.8-10.8)
[2017-09-04 12:51] LABS: ALT/SGPT 15 U/L (12-78); BLOOD UREA NITROGEN 8 mg/dl (7-18); BUN/CREATININE RATIO 9.2 (10-20); CALCIUM 8.7 mg/dl (8.5-10.1); CARBON DIOXIDE 27 mmol/L (21-32); CHLORIDE 107 mmol/L (98-107); GLUCOSE 97 mg/dl (70-99); POTASSIUM 3.7 mmol/L (3.5-5.1); SODIUM 141 mmol/L (136-145)
[2017-09-04 13:02] LABS: ALB/GLOB RATIO 1.1 (0.9-2); ALKALINE PHOSPHATASE 58 U/L (45-117); AST/SGOT 11 U/L (15-37)
== END | disposition home or self-care (01) ==
LOC: C.LABPBG 10:47
PROVIDERS: ATTEND Psychiatry & Neurology Psychiatry
DX: Z79.899 Other long term (current) drug therapy (principal)

== ENCOUNTER 2017-09-08 07:25 | Day surgery (SDC) | payer BC ==
[2017-08-29 13:08] VITALS: Ht 170.2 cm; Wt 59.5 kg
[~2017-09-08] VITALS: Ht 170.2 cm; Wt 59.5 kg
[~2017-09-08 07:25] MED LIST changes: +ATROPINE SULFATE 0.1 MG/ML 5ML SYR IV PRN; +EpHEDrine SULFATE INJ 50 MG/ML AMP IV PRN; +LACTATED RINGER'S 1000ML 1,000 ML IV SCH; +ONDANSETRON INJ 2 MG/ML 2 ML VIAL IV PRN; +SCOPOLAMINE 1.5 MG TDSY TD SCH
[2017-09-08 08:03] VITALS: BP 125/65; PULSE 75; TEMP 36.6; O2SAT 98
[2017-09-08] MEDS ORDERED: LIDOCAINE HCL 2% 2 ML VIAL (20MG/ML) ONE (08:38)
[2017-09-08] MEDS ORDERED: DEXAMETHASONE SOD INJ 4 MG/ML VIAL ONE (08:38)
[2017-09-08] MEDS ORDERED: MIDAZOLAM HCL 1 MG/ML 2ML VIAL ONE (08:38)
[2017-09-08] MEDS ORDERED: ONDANSETRON INJ 2 MG/ML 2 ML VIAL ONE ×2 (08:38→09:53)
[2017-09-08] MEDS ORDERED: PROPOFOL IV EMULSION 10 MG/ML 20 ML VIAL IV ONE (08:38)
[2017-09-08] MEDS ORDERED: FENTANYL CITRATE INJ 50 MCG/1 ML 2 ML VIAL ONE (08:38)
--- NOTE | 2017-09-08 09:08 | Endo History and Physical ---
History & Physical Date of Service: Sep 08, 2017. Chief Complaint: Abdominal pain Referring Physician: History of Present Illness Patient with a history of intermittent abdominal pain, prior history notable for choledocholithiasis. She presents today for upper endoscopy and endoscopic ultrasound for further evaluation. ERCP planned if found to have gallstones. Past Surgical History Hx Cardiac Surgery: No Hx Abdominal Surgery: Yes ( X3, LAP AYDEN) Hx Post-Op Nausea and Vomiting: Yes Hx Cancer Surgery: No Hx Thoracic Surgery: No Hx Orthopedic: No Hx Urinary Tract Surgery: No Social History Smoking Status: Current Every Day Smoker Hx Substance Use: No Hx Alcohol Use: No Allergies Coded Allergies: No Known Allergies (Verified , 09/08/17) Current Medications Reported Home Medications Medications Dose Route/Sig Max Daily Dose Days Date Category Dose Instructions Phenergan (Promethazine HCl) 12.5 Mg Tab 12.5 Mg PO DAILY PRN 08/29/17 Reported Linzess (Linaclotide) 290 Mcg Cap 290 Mcg PO Q2D 08/29/17 Reported Percocet 7.5MG/325MG (Oxycodone/Acetaminophen) Tab 1 Tab PO QID PRN 08/29/17 Reported PRN PAIN Baclofen 20 Mg Tab 20 Mg PO TID PRN 08/29/17 Reported Senokot S (Sennosides-Docusate Sodium) 1 Tab Tab 1 Tab PO QAM PRN 15 11/19/16 Rx Triamcinolone Acet 0.025% (Triamcinolone Acetonide (Topic) 0.025 % Oin 1 Appln TOP BID PRN 11/11/16 Reported Protonix (Pantoprazole) 40 Mg Tab 40 Mg PO QAM 11/11/16 Reported Geodon (Ziprasidone Hcl) 80 Mg Cap 80 Mg PO HS 08/11/16 Reported Klonopin (Clonazepam) 1 Mg Tab 2 Mg PO BID 08/11/16 Reported Wellbutrin-Xl (Bupropion HCl) 300 Mg Tabcr 300 Mg PO QAM 08/11/16 Reported Vital Signs Weight (Kilograms): 59.55 Height (Feet): 5 Height (Inches): 7 Date Time Temp Pulse Resp B/P (MAP) Pulse Ox O2 Delivery O2 Flow Rate FiO2 09/08/17 08:03 36.6 75 18 125/65 (85) 98 Room Air Physical Exam General Appearance: no apparent distress Respiratory/Chest: Auscultation: breath sounds normal Cardiovascular: Heart Auscultation: RRR Abdomen: Inspection & Palpation: soft, no masses Assessment and Plan Patient for upper endoscopy and endoscopic ultrasound to evaluate for evidence of choledocholithiasis. If found to have gallstones we will proceed with ERCP this afternoon. We have discussed the risks to include bleeding, infection, perforation, pancreatitis and need for follow-up studies.
[2017-09-08] MEDS ORDERED: INDOMETHACIN 50 MG SUPP PR ONE ×2 (09:14→09:15)
--- NOTE | 2017-09-08 09:47 | GI REPORT ---
Procedure Date: 09/08/2017 9:25 AM Procedure: Upper GI endoscopy Indications: Epigastric abdominal pain Medicines: General Anesthesia Complications: No immediate complications. Estimated blood loss: None. Estimated Blood Loss: Estimated blood loss was minimal. Procedure: Pre-Anesthesia Assessment: - Prior to the procedure, a History and Physical was performed, and patient medications, allergies and sensitivities were reviewed. The patient's tolerance of previous anesthesia was reviewed. - The risks and benefits of the procedure and the sedation options and risks were discussed with the patient. All questions were answered and informed consent was obtained. - Patient identification and proposed procedure were verified prior to the procedure by the physician, the nurse and the crystal growing technician. The procedure was verified in the procedure room. - Pre-procedure physical examination revealed no contraindications to sedation. - ASA Grade Assessment: II - A patient with mild systemic disease. - After reviewing the risks and benefits, the patient was deemed in satisfactory condition to undergo the procedure. - The anesthesia plan was to use general anesthesia. - Immediately prior to administration of medications, the patient was re-assessed for adequacy to receive sedatives. - The heart rate, respiratory rate, oxygen saturations, blood pressure, adequacy of pulmonary ventilation, and response to care were monitored throughout the procedure. - The physical status of the patient was re-assessed after the procedure. After obtaining informed consent, the endoscope was passed under direct vision. Throughout the procedure, the patient's blood pressure, pulse, and oxygen saturations were monitored continuously.The upper GI endoscopy was accomplished without difficulty. The patient tolerated the procedure well. The scope was introduced through the mouth, and advanced to the third part of duodenum. Findings: The examined esophagus was normal. Diffuse mild inflammation characterized by erythema and granularity was found in the entire examined stomach. Biopsies were taken with a cold forceps for histology. Estimated blood loss was minimal. The examined duodenum was normal. Biopsies for histology were taken with a cold forceps for for evaluation of celiac disease. Estimated blood loss was minimal. Impression: - Normal esophagus. - Chronic gastritis. Biopsied. - Normal examined duodenum. Biopsied. Recommendation: - Perform an upper endoscopic ultrasound (UEUS) today. - Await pathology results. Skinny Duarte D.O. Skinny Duarte DO 09/08/2017 9:46:22 AM This report has been signed electronically. Note Initiated On: 09/08/2017 9:25 AM I attest to the content of the Intraoperative Record and orders documented therein, exceptions below
--- NOTE | 2017-09-08 10:20 | GI REPORT ---
Procedure Date: 09/08/2017 9:28 AM Procedure: Upper EUS Indications: Suspected choledocholithiasis, Epigastric abdominal pain, Abdominal pain in the right upper quadrant Medicines: General Anesthesia Complications: No immediate complications. Estimated blood loss: Minimal. Estimated Blood Loss: Estimated blood loss was minimal. Procedure: Pre-Anesthesia Assessment: - Prior to the procedure, a History and Physical was performed, and patient medications, allergies and sensitivities were reviewed. The patient's tolerance of previous anesthesia was reviewed. - The risks and benefits of the procedure and the sedation options and risks were discussed with the patient. All questions were answered and informed consent was obtained. - Patient identification and proposed procedure were verified prior to the procedure by the physician, the nurse and the parachute mender. The procedure was verified in the procedure room. - Pre-procedure physical examination revealed no contraindications to sedation. - ASA Grade Assessment: II - A patient with mild systemic disease. - After reviewing the risks and benefits, the patient was deemed in satisfactory condition to undergo the procedure. - The anesthesia plan was to use general anesthesia. - Immediately prior to administration of medications, the patient was re-assessed for adequacy to receive sedatives. - The heart rate, respiratory rate, oxygen saturations, blood pressure, adequacy of pulmonary ventilation, and response to care were monitored throughout the procedure. - The physical status of the patient was re-assessed after the procedure. After obtaining informed consent, the endoscope was passed under direct vision. Throughout the procedure, the patient's blood pressure, pulse, and oxygen saturations were monitored continuously.The upper EUS was accomplished without difficulty. The patient tolerated the procedure well. The Endosonoscope was introduced through the mouth, and advanced to the second part of duodenum. Findings: Endosonographic Finding : Evidence of a previous cholecystectomy was identified endosonographically. There was dilation in the common bile duct which measured up to 8 mm. Many stones were visualized endosonographically in the middle third of the main bile duct. They were hyperechoic and characterized by shadowing. There was no sign of significant endosonographic abnormality in the left lobe of the liver. Homogeneous parenchyma and no masses were identified. There was no sign of significant endosonographic abnormality in the entire pancreas. No masses, no cysts, the pancreatic duct was thin in caliber. No lymphadenopathy seen. There was no sign of significant endosonographic abnormality in the left adrenal gland. No adrenal gland enlargement was identified. Impression: - Evidence of a cholecystectomy. - There was dilation in the common bile duct which measured up to 8 mm. - Many stones were visualized endosonographically in the middle third of the main bile duct. - There was no evidence of significant pathology in the left lobe of the liver. - There was no sign of significant pathology in the pancreatic head. - Endosonographic images of the left adrenal gland were unremarkable. - No specimens collected. Recommendation: - Perform an ERCP today. Skinny Duarte D.O. Skinny Duarte, 09/08/2017 10:19:55 AM This report has been signed electronically. Note Initiated On: 09/08/2017 9:28 AM I attest to the content of the Intraoperative Record and orders documented therein, exceptions below
--- NOTE | 2017-09-08 10:27 | GI REPORT ---
Procedure Date: 09/08/2017 9:57 AM Procedure: ERCP Indications: Abdominal pain of suspected biliary origin, Bile duct stone on Ultrasound Medicines: General Anesthesia, Indocin 100 mg LA Complications: No immediate complications. Estimated blood loss: Minimal. Estimated Blood Loss: Estimated blood loss was minimal. Procedure: Pre-Anesthesia Assessment: - Prior to the procedure, a History and Physical was performed, and patient medications, allergies and sensitivities were reviewed. The patient's tolerance of previous anesthesia was reviewed. - The risks and benefits of the procedure and the sedation options and risks were discussed with the patient. All questions were answered and informed consent was obtained. - Patient identification and proposed procedure were verified prior to the procedure by the physician, the nurse and the cloth doffer. The procedure was verified in the procedure room. - Pre-procedure physical examination revealed no contraindications to sedation. - ASA Grade Assessment: II - A patient with mild systemic disease. - After reviewing the risks and benefits, the patient was deemed in satisfactory condition to undergo the procedure. - The anesthesia plan was to use general anesthesia. - Immediately prior to administration of medications, the patient was re-assessed for adequacy to receive sedatives. - The heart rate, respiratory rate, oxygen saturations, blood pressure, adequacy of pulmonary ventilation, and response to care were monitored throughout the procedure. - The physical status of the patient was re-assessed after the procedure. After obtaining informed consent, the scope was passed under direct vision. Throughout the procedure, the patient's blood pressure, pulse, and oxygen saturations were monitored continuously. The Scope was introduced through the mouth, and advanced to the duodenum and used to cannulate the bile duct. The ERCP was accomplished without difficulty. The patient tolerated the procedure well. Findings: A casino investigator film of the abdomen was obtained. Surgical clips, consistent with previous cholecystectomy, were seen in the area of the right upper quadrant of the abdomen. The esophagus was successfully intubated under direct vision without detailed examination of the pharynx, larynx, and associated structures, and upper GI tract. The upper GI tract was grossly normal. The bile duct was deeply cannulated with the short-nosed traction sphincterotome (Omni 35) and 0.035 in Acrobat guidewire. Contrast was injected. I personally interpreted the bile duct images. Contrast extended to the main bile duct. The main bile duct was diffusely dilated. The largest diameter was 16 mm. The biliary orifice was stenotic appearing within the intraduodenal segement. This appeared benign. The biliary sphincterotomy was extended with a monofilament short-tip traction sphincterotome using ERBE electrocautery. There was no post-sphincterotomy bleeding. To discover objects, the biliary tree was swept with an 18 mm balloon starting at the bifurcation. Debris was swept from the duct. Nothing remained on occlusion cholangiogram. The endoscope was withdrawn from the patient. Impression: - The entire main bile duct was dilated. - Biliary papillary stenosis, benign. - A sphincterotomy was performed. - The biliary tree was swept and debris was found. Recommendation: - Avoid aspirin and nonsteroidal anti-inflammatory medicines for 1 week. - Clear liquid diet today. - Observe patient's clinical course. Skinny Duarte D.O. Skinny Duarte, 09/08/2017 10:26:55 AM This report has been signed electronically. Note Initiated On: 09/08/2017 9:57 AM I attest to the content of the Intraoperative Record and orders documented therein, exceptions below
[2017-09-08] MEDS ORDERED: NURSING VERBAL MED ORDER ONE (10:30)
--- NOTE | 2017-09-08 10:30 | [facility] Post Operative Brief Note ---
Immediate Operative Summary Operative Date Sep 08, 2017. Pre-Operative Diagnosis history of intermittent abdominal pain, prior history notable for choledocholithiasis Post-Operative Diagnosis history of intermittent abdominal pain, prior history notable for choledocholithiasis; papillary stenosis Procedure(s) Performed upper endoscopy, Upper Endoscopic Ultrasonography, Esophagogastroduodenoscopy, Endoscopic Retrograde Cholangiopancreatography Surgeon Dr. Kristina Duarte Hepatologist Surgeon(s) none Estimated Blood Loss 0mL Findings Mild gastritis dilated common bile duct papillary stenosis debriss in [place] Specimens Specimens maintained by endoscopy staff Anesthesia general Complication(s) None Disposition Recovery Room / PACU
--- NOTE | 2017-09-08 10:32 | Discharge Instructions ---
Endoscopy Patient Instructions Date / Procedure(s) Performed Sep 08, 2017. ERCP, EGD, Other (endoscopic ultrasound) Allergy Information Coded Allergies: No Known Allergies (Verified , 09/08/17) Discharge Date / Findings Sep 08, 2017. Mild gastritis Dilated common bile duct Intraductal debris/stone material Biliary spincterotomy extended Debris removed from bile duct Medication Instructions Reported Home Medications Medications Dose Route/Sig Max Daily Dose Days Date Category Dose Instructions Phenergan (Promethazine HCl) 12.5 Mg Tab 12.5 Mg PO DAILY PRN 08/29/17 Reported Linzess (Linaclotide) 290 Mcg Cap 290 Mcg PO Q2D 08/29/17 Reported Percocet 7.5MG/325MG (Oxycodone/Acetaminophen) Tab 1 Tab PO QID PRN 08/29/17 Reported PRN PAIN Baclofen 20 Mg Tab 20 Mg PO TID PRN 08/29/17 Reported Senokot S (Sennosides-Docusate Sodium) 1 Tab Tab 1 Tab PO QAM PRN 15 11/19/16 Rx Triamcinolone Acet 0.025% (Triamcinolone Acetonide (Topic) 0.025 % Oin 1 Appln TOP BID PRN 11/11/16 Reported Protonix (Pantoprazole) 40 Mg Tab 40 Mg PO QAM 11/11/16 Reported Geodon (Ziprasidone Hcl) 80 Mg Cap 80 Mg PO HS 08/11/16 Reported Klonopin (Clonazepam) 1 Mg Tab 2 Mg PO BID 08/11/16 Reported Wellbutrin-Xl (Bupropion HCl) 300 Mg Tabcr 300 Mg PO QAM 08/11/16 Reported Provider Instructions Activity Restrictions - No exercising or heavy lifting for 24 hours. - Do not drink alcohol the day of the procedure. - Do not drive a car or operate machinery until the day after the procedure. - Do not make any important decisions or sign important papers in 24 hours after the procedure. Following Day: - Return to full activity which may include returning to work/school. Diet Clear liquid diet today Treatment For Common After Affects For mild abdominal pain, bloating, or excessive gas: - Rest - Eat lightly - Lie on right side Follow-Up Information Liquid diet today Clinic follow-up in 3-4 months or sooner if needed (Ms. Patel) No NSAIDS / motrin / ibuprofen for 1 week Cipro 500 mg twice daily for 3 days. Anesthesia Information What You Should Know You have had a procedure that required some medicine to reduce anxiety and discomfort. This treatment is called moderate sedation. After receiving the treatment, you may be sleepy, but you will be able to breathe on your own. The effects of the treatment may last for several hours. Follow these instructions along with Activity/Diet recommendations noted above: * Do NOT do anything where dizziness or clumsiness would be dangerous. * Rest quietly at home today, then you can be up and about tomorrow. * Have a responsible person stay with you the rest of today. * You may have had an I.V. today. If so, you may take the dressing off later today. Recommendations Call your doctor if: * Trouble breathing * Continuous vomiting for more than 24 hours * Temperature above 101 degrees * Severe abdominal pain or bloating * Pain not relieved by pain medicine ordered * There is increased drainage or redness from any incision * A large amount of rectal bleeding greater than 2-3 tablespoons. (If you had a polyp/s removed or have hemorrhoids, a small amount of blood - from the rectum is to be expected.) * You have any unanswered questions or concerns. IN THE EVENT OF A SERIOUS EMERGENCY, GO TO THE NEAREST EMERGENCY ROOM Your discharge instructions were prepared by provider Skinny Duarte. Patient Instructions Signature Page Moon Tovar Patient (or Guardian) Signature/Date: I have read and understand the instructions given to me by my caregivers. Caregiver/RN/Doctor Signature/Date: The above-named patient and/or guardian has received patient instructions on this date. + Original Patient Signature Page (only) stays with chart. Please make copy for patient.
[2017-09-08] MEDS: FENTANYL CITRATE INJ 50 MCG/1 ML 2 ML VIAL IV PRN ×2 (10:37→10:45)
[2017-09-08] MEDS ORDERED: ONDANSETRON INJ 2 MG/ML 2 ML VIAL IV PRN (10:45)
[2017-09-08] MEDS ORDERED: CIPROFLOXACIN 400MG / 200ML D5W IV SCH (10:45)
[2017-09-08] MEDS ORDERED: PROMETHAZINE HCL INJ 12.5 MG in SODIUM CHLORIDE 0.9% 50ML 50 ML IV ONE (10:45)
--- NOTE | 2017-09-08 10:51 | DIAGNOSTIC IMAGING REPORT ---
ERCP BILIARY DUCTAL CLINICAL HISTORY: Nausea, vomiting, biliary ductal dilatation. COMPARISON STUDY: Biliary ultrasound dated 08-18 FLUOROSCOPY TIME: 88 seconds. NUMBER OF FLUOROSCOPIC IMAGES: 10 FINDINGS: Fluoroscopic spot images from an ERCP are provided for interpretation. There is dilatation of the common bile duct. No definite filling defects were delineated. The gallbladder is surgically absent. Images demonstrate a balloon catheter being swept through the duct. On the final image, there is minimal prominence of the intrahepatic biliary tree. There is air within the common bile duct. There is contrast within the duodenum. IMPRESSION: Fluoroscopic spot images during ERCP as described above. Electronically signed by: David Sultana M.D. 09/08/2017 10:49 AM Dictated Date/Time: 09/08/2017 10:47 AM
--- NOTE | 2017-09-08 11:10 | Anesthesiology Progress Note ---
Anesthesia Post Op Note Date & Time Sep 08, 2017 at 11:09 Vital Signs Pain Intensity: 3 Vital Signs Past 12 Hours Date Time Temp Pulse Resp B/P (MAP) Pulse Ox O2 Delivery O2 Flow Rate FiO2 09/08/17 11:00 36.5 76 16 135/89 99 Room Air 09/08/17 10:50 72 16 126/86 97 Room Air 09/08/17 10:40 80 16 136/91 97 Room Air 09/08/17 10:30 97 16 131/80 100 Oxymask 10 09/08/17 10:20 36.4 99 16 127/76 100 Oxymask 10 09/08/17 08:03 36.6 75 18 125/65 (85) 98 Room Air Notes Mental Status: alert / awake / arousable, participated in evaluation Pt Amnestic to Procedure: Yes Nausea / Vomiting: adequately controlled Pain: adequately controlled Airway Patency, RR, SpO2: stable & adequate BP & HR: stable & adequate Hydration State: stable & adequate Anesthetic Complications: no major complications apparent
[2017-09-08 11:15] VITALS: BP 138/64; PULSE 66; TEMP 36.8; O2SAT 97
[2017-09-08 11:44] VITALS: BP 122/76; PULSE 69; O2SAT 97
[2017-09-08 12:25] VITALS: BP 127/73; PULSE 72; TEMP 36.5; O2SAT 97
[2017-09-08] MEDS ORDERED: CHECK SCOPOLAMINE PATCH PLACEMENT SCH (16:00)
== END 2017-09-08 12:35 | disposition home or self-care (01) ==
LOC: C.ACU 07:25
PROVIDERS: ATTEND Internal Medicine Gastroenterology
DX: R10.13 Epigastric pain (principal); K29.50 Unspecified chronic gastritis without bleeding; Z90.49 Acquired absence of other specified parts of digestive tract; F17.200 Nicotine dependence, unspecified, uncomplicated; F31.9 Bipolar disorder, unspecified; K21.9 Gastro-esophageal reflux disease without esophagitis